=== PATIENT | male | born 1980 | race Hispanic/Latino ===

== ENCOUNTER 2017-08-27 23:33 | Emergency (ER) | payer OTHER ==
--- NOTE | 2017-08-27 23:51 | RAD ---
PORTABLE CHEST: 08/27/17 HISTORY: Chest pain. The lungs are clear. Heart and mediastinum appear unremarkable. IMPRESSION: No acute abnormality. POS: [facility]
[2017-08-27 23:52] LABS: #Basophils 0.2 thou/uL (0.0-0.2); #Eosinphils 0.3 thou/uL (0.0-0.7); #Lymphocytes 4.1 thou/uL (1.20-3.40); #Neutrophils 6.4 thou/uL (1.40-6.50); %Basophils 1.4 % (0.0-1.0); %Eosinophils 2.5 % (0.0-10.0); %Lymphocytes 34.7 % (21.0-51.0); %Monocytes 8.2 % (0.0-10.0); %Neutrophils 53.2 % (42.0-75.0); Mean Corpuscular Hemoglobin 30.3 pg (27.0-31.0); Mean Corpuscular Volume 89.2 fl (80.0-94.0); Mean Platelet Volume 9.1 fL (7.4-10.4); Platelet Count 229 thou/uL (130-400); RBC Distribution Width 12.4 % (11.5-14.5); Red Blood Cell (RBC) Count 4.97 mill/uL (4.70-6.10); White Blood Cell (WBC) Count 11.9 thou/uL (4.8-10.8)
[2017-08-28 00:13] LABS: ALT (SGPT) 33 U/L (8-55); AST (SGOT) 21 U/L (5-34); Albumin 4.6 g/dL (3.5-5.0); Alkaline Phosphatase 108 U/L (40-150); Anion Gap 14 mmol/L (10-20); BUN (Urea Nitrogen) 18 mg/dL (8.9-20.6); Bilirubin, Total 0.5 mg/dL (0.2-1.2); Calc. Creatinine Clearance 0 mL/min (70-130); Carbon Dioxide 26 mmol/L (22-29); Chloride 102 mmol/L (98-107); Estimated GFR-MDRD Greater than 90; Globulin 2.9 g/dL (2.4-3.5); Glucose 83 mg/dL (70-105); Potassium 3.7 mmol/L (3.5-5.1); Protein, Total 7.5 g/dL (6.0-8.3); Sodium 138 mmol/L (136-145)
[2017-08-28 00:19] LABS: CKMB 0.9 ng/mL (0-6.6); Troponin I Less than 0.010 ng/mL (< 0.028)
[2017-08-28] MEDS ORDERED: Ketorolac Tromethamine 30 MG/ML VIAL ONE (00:38)
== END 2017-08-28 01:18 | disposition home or self-care (01) ==
LOC: ERS 23:33
DX: R07.89 Other chest pain (principal); F17.210 Nicotine dependence, cigarettes, uncomplicated
CPT/HCPCS: 71045; 80053; 82553; 84484; 85025; 85379; 93005; 96361; 96374; 96375; J1885; J2270

== ENCOUNTER 2019-02-02 19:56 | Observation (INO) | payer OTHER, BC ==
[2019-02-02] MEDS ORDERED: Aspirin Chewable 81 MG TAB ONE (20:11)
[2019-02-02] MEDS ORDERED: Nitroglycerin 2% Ointment 1 INCH/1 GM Packet ONE (20:11)
[2019-02-02 20:22] LABS: #Basophils 0.2 thou/uL (0.0-0.2); #Eosinphils 0.2 thou/uL (0.0-0.7); #Lymphocytes 2.9 thou/uL (1.20-3.40); #Monocytes 1.1 thou/uL (0.11-0.59); #Neutrophils 6.4 thou/uL (1.40-6.50); %Basophils 1.6 % (0.0-1.0); %Eosinophils 1.7 % (0.0-10.0); %Lymphocytes 27.1 % (21.0-51.0); %Monocytes 9.8 % (0.0-10.0); %Neutrophils 59.8 % (42.0-75.0); Hemoglobin 16.2 g/dL (14.0-18.0); Mean Corpuscular HGB CONC 32.1 g/dL (32.0-36.0); Mean Corpuscular Hemoglobin 28.6 pg (27.0-31.0); Mean Platelet Volume 10.8 fL (7.4-10.4); Platelet Count 261 thou/uL (130-400); RBC Distribution Width 12.6 % (11.5-14.5); Red Blood Cell (RBC) Count 5.68 mill/uL (4.70-6.10); White Blood Cell (WBC) Count 10.7 thou/uL (4.8-10.8)
--- NOTE | 2019-02-02 20:30 | RAD ---
EXAM: Chest PA and lateral: HISTORY: Chest pain COMPARISON: 08/27/2017 FINDINGS: Heart size:Within normal limits. Lungs:Clear of acute process. No confluent pneumonia, overt edema, pleural effusion, or other acute process. IMPRESSION: No significant acute intrathoracic disease.
[2019-02-02 20:35] LABS: ALT (SGPT) 39 U/L (8-55); AST (SGOT) 25 U/L (5-34); Albumin 4.6 g/dL (3.5-5.0); Alkaline Phosphatase 114 U/L (40-110); Anion Gap 17 mmol/L (10-20); BUN (Urea Nitrogen) 14 mg/dL (8.9-20.6); Bilirubin, Total 0.7 mg/dL (0.2-1.2); CK (CPK) 225 U/L (30-200); Calc. Creatinine Clearance 0 mL/min (70-130); Calcium 9.5 mg/dL (7.8-10.44); Carbon Dioxide 27 mmol/L (22-29); Chloride 99 mmol/L (98-107); Estimated GFR-MDRD 71; Globulin 3.3 g/dL (2.4-3.5); Glucose 83 mg/dL (70-105); Lipase 10 U/L (8-78); Potassium 3.6 mmol/L (3.5-5.1); Protein, Total 7.9 g/dL (6.0-8.3); Sodium 139 mmol/L (136-145)
[2019-02-02 22:12] VITALS: BMI 41.3
[2019-02-02] MEDS ORDERED: Morphine 2 MG/ML SYRINGE SLOW IVP PRN (22:30)
[2019-02-02] MEDS ORDERED: hydrALAZINE 20 MG/ML VIAL SLOW IVP PRN (22:30)
[2019-02-02] MEDS ORDERED: Sodium Chloride 0.9% 1,000 ML IV SCH (22:35)
[2019-02-02] MEDS ORDERED: HYDROcodone/Acetaminophen 5/325 mg Tablet PO PRN (22:35)
[2019-02-02] MEDS ORDERED: Ondansetron PF 4 MG/2 ML Vial IVP PRN (22:35)
[2019-02-02] MEDS: Nitroglycerin 2% Ointment 1 INCH/1 GM Packet TOP SCH (22:48)
[2019-02-02 23:32] LABS: Troponin I 0.016 ng/mL (< 0.028)
--- NOTE | 2019-02-03 00:44 | HP ---
PRESENTING COMPLAINT: Left-sided chest pain. HISTORY OF PRESENT ILLNESS: Josh Kowalski is a 38-year-old male with past medical history of GERD, on Prevacid, who developed left-sided chest pain radiating to the left shoulder since the last one day. The pain was more of a sharp, but later became pressure-like. The patient describes the pain as about 7 to 10. The pain was not improved after he was given nitroglycerin patch and aspirin. The initial EKG at the emergency room showed T-wave inversion in lead one and AVF. The patient continues to still have persistent pain symptoms now. His initial troponin was negative with repeat 4 hours later of 0.016. The patient admits to some nausea and vomiting, but denies any palpitation or dizziness. FAMILY HISTORY: There is no family history of coronary artery disease. Both parents are alive and well. social hx - mo tobacco use , no etoh use He admits to occasional marijuana vaping. PAST MEDICAL HISTORY: Significant for GERD. HOME MEDICATIONS: Include Prevacid. SOCIAL HISTORY: The patient is residing in the community with his spouse. History of former tobacco use. Still occasionally smokes. History of marijuana vaping , but no history of alcohol abuse. REVIEW OF SYSTEMS: All systems reviewed x14 were negative except as mentioned above. ALLERGIES: NO KNOWN DRUG ALLERGIES. PHYSICAL EXAMINATION: VITAL SIGNS: Current vitals, blood pressure of 128/79, pulse 84, respiratory rate 18, O2 saturation 97% on room air, temp 98. GENERAL: Obese young male, lying in bed, in mild pain and distress. HEENT: Head is atraumatic, normocephalic. NECK: No JVD. No carotid bruit. RESPIRATORY: Good air entry bilaterally. No crepitations. CARDIOVASCULAR: S1, S2. Rate and rhythm regular. Tenderness over the left anterior chest margin noted. ABDOMEN: Full, soft. No epigastric tenderness. Bowel sounds positive in all four quadrants. MUSCULOSKELETAL: No calf tenderness. No pedal edema. NEURO: The patient is alert and oriented. Cranial nerves 2 through 12 grossly intact. LABORATORY DATA: WBC 10.7, hemoglobin 16, platelet 261. D-dimer less than 0.2. Potassium 3.6, sodium 139, CK of 225, alkaline phosphatase 114. Troponin less than 0.01 and repeat of 0.016. Albumin 4.6, lipase 10. Chest x-ray shows no acute pulmonary infiltrate or effusions. IMPRESSION: 1. Atypical chest pain - possibly musculoskeletal, but may also be due to acute coronary syndrome. We will continue serial sets of cardiac enzymes. Continue nitroglycerin p.r.n. We dosed morphine x1 for pain relief. We will obtain CTA of the chest to rule out any intrathoracic abnormality including infiltrate, given tenderness of anterior chest margin. If negative, then patient might benefit from stress test as well as Cardiology eval in a.m. 2. Deep venous thrombosis prophylaxis, subcutaneous Lovenox. 3. Gastroesophageal reflux disease. Continue Prevacid. 4. Disposition. We will admit to observation for now. ADVANCED DIRECTIVES: Patient is a full code. Total time spent on review of record and discussion with the patient and spouse, greater than 60 minutes. Job ID: [id number] MTDD
[2019-02-03] MEDS ORDERED: Promethazine HCl 25 MG in Sodium Chloride 0.9% 50 ML IVPB PRN (01:08)
[2019-02-03 03:25] VITALS: TEMP 98.4
[2019-02-03 03:38] LABS: #Basophils 0.1 thou/uL (0.0-0.2); #Eosinphils 0.1 thou/uL (0.0-0.7); #Lymphocytes 1.2 thou/uL (1.20-3.40); #Monocytes 0.9 thou/uL (0.11-0.59); %Basophils 0.6 % (0.0-1.0); %Eosinophils 0.6 % (0.0-10.0); %Lymphocytes 10.6 % (21.0-51.0); %Neutrophils 80.2 % (42.0-75.0); Hemoglobin 15.2 g/dL (14.0-18.0); Mean Corpuscular HGB CONC 34.1 g/dL (32.0-36.0); Mean Corpuscular Hemoglobin 29.7 pg (27.0-31.0); Mean Corpuscular Volume 87.2 fL (78.0-98.0); Mean Platelet Volume 9.1 fL (7.4-10.4); Platelet Count 242 thou/uL (130-400); RBC Distribution Width 12.3 % (11.5-14.5); Red Blood Cell (RBC) Count 5.12 mill/uL (4.70-6.10); White Blood Cell (WBC) Count 11.2 thou/uL (4.8-10.8)
[2019-02-03 03:59] LABS: ALT (SGPT) 33 U/L (8-55); AST (SGOT) 23 U/L (5-34); Albumin 4.3 g/dL (3.5-5.0); Alkaline Phosphatase 96 U/L (40-110); Anion Gap 17 mmol/L (10-20); BUN (Urea Nitrogen) 14 mg/dL (8.9-20.6); Bilirubin, Total 0.8 mg/dL (0.2-1.2); Calc. Creatinine Clearance 173 mL/min (70-130); Carbon Dioxide 22 mmol/L (22-29); Chloride 100 mmol/L (98-107); Estimated GFR-MDRD 79; Glucose 109 mg/dL (70-105); Potassium 4.1 mmol/L (3.5-5.1); Protein, Total 7.3 g/dL (6.0-8.3); Sodium 135 mmol/L (136-145)
[2019-02-03 04:02] LABS: Troponin I Less than 0.010 ng/mL (< 0.028)
[2019-02-03 04:03] LABS: Troponin I Less than 0.010 ng/mL (< 0.028)
[2019-02-03] MEDS: Nitroglycerin 2% Ointment 1 INCH/1 GM Packet TOP SCH (06:24)
[2019-02-03] MEDS ORDERED: Nitroglycerin 0.4 MG TAB (25 Tab Bottle) PO PRN (07:46)
[2019-02-03 08:22] VITALS: BP 116/74
--- NOTE | 2019-02-03 08:24 | CT ---
PRELIMINARY REPORT/[facility]/EMERGENCY AFTER HOURS PROCEDURE: PROCEDURE INFORMATION: Exam: CT Angiography Chest With Contrast Exam date and time: 02/03/2019 1:01 AM Age: 38 years old Clinical history: Patient HX: PT C/O left sided chest pain with radiation to back TECHNIQUE: Imaging protocol: Computed tomographic angiography of the chest with intravenous contrast. 3D rendering: MIP reconstructed images were created and reviewed. COMPARISON: No relevant prior studies available. FINDINGS: Pulmonary arteries: No pulmonary emboli. Aorta: Unremarkable. No aortic aneurysm. No aortic dissection. Lungs: Unremarkable. No consolidation. No masses. Pleural space: Unremarkable. No pneumothorax. No pleural effusion. Heart: Unremarkable. No cardiomegaly. No pericardial effusion. Mediastinum: Small-sized hiatal hernia. Lymph nodes: Unremarkable. No enlarged lymph nodes. Bones/joints: Unremarkable. No acute fracture. Soft tissues: Unremarkable. IMPRESSION: No pulmonary emboli. Thank you for allowing us to participate in the care of your patient. Dictated and Authenticated by: Henry Baltazar MD 02/03/2019 1:31 AM Central Time ([place] & [place]) FINAL REPORT CT ANGIOGRAM CHEST: HISTORY: Evaluate for pulmonary artery embolism. Chest pain radiating to back. COMPARISON: None. TECHNIQUE: CT angiogram of the chest performed in the axial plane. Three-dimensional reformatted images submitte d for interpretation. FINDINGS/IMPRESSION: This report is in agreement with the preliminary report by Mandeep. No evidence of pulmonary artery embo lism to the level of the segmental arteries. POS: [facility]
[2019-02-03] MEDS ORDERED: Famotidine 20 MG TAB PO SCH (09:00)
[2019-02-03] MEDS ORDERED: Nitroglycerin 0.4mg/Hour PATCH TD SCH (09:00)
[2019-02-03] MEDS ORDERED: Enoxaparin Sodium 40 MG/0.4 ML SYRINGE SC SCH (09:00)
[2019-02-03] MEDS ORDERED: Aspirin 325 mg Enteric Coated Tablet PO SCH ×2 (09:00)
--- NOTE | 2019-02-03 10:19 | NM ---
EXAM: Cardiac SPECT HISTORY: Chest pain PROTOCOL: Stress only, single isotope TYPE OF STRESS: Pharmacologic stress with adenosine was monitored and interpreted by MELQUIADES Lynch RADIOPHARMACEUTICAL: 32 mCi technetium 99m-sestamibi injected intravenously FINDINGS: Homogeneous tracer distribution is seen in the myocardial segments on the post stress images. Gated SPECT LVEF: 61% Wall motion exam: Normal IMPRESSION: Normal post stress myocardial perfusion scan.
[2019-02-03] MEDS ORDERED: Iopamidol-370 76% 500 ML 1 ML ONE (11:27)
--- NOTE | 2019-02-03 18:49 | DIS ---
DATE OF ADMISSION: 02/02/2019 DATE OF DISCHARGE: 02/03/2019 DISCHARGE DISPOSITION: Home. FOLLOWUP: 1. Follow up with primary care physician, Dr. Ya in 1 week. 2. An outpatient followup with Gastroenterology and Cardiology would be beneficial. DISCHARGE MEDICATIONS: 1. Phenergan as needed for nausea. 2. Protonix 40 mg twice daily for 2 weeks, then daily. 3. Lifestyle modification was emphasized. The patient was seen and examined on the day of discharge. Denies any new complaints. SIGNIFICANT LABORATORY DATA: Troponin was negative. Sodium was 135. D-dimer was negative. Hemoglobin was 15.2. CT angiogram of the chest was negative for pulmonary embolism. Cardiolite stress test was negative for reversible ischemia. Ejection fraction was 61% without any wall motion abnormality. BRIEF HOSPITAL COURSE: The patient is a 38-year-old male with GERD, presented to the emergency room with chest discomfort. The chest discomfort was pressure-like, midsternal, radiating to the left shoulder. It was initially sharp in nature. He also had nausea and vomiting prior to the onset of chest pain. He also has upper respiratory tract infection like symptoms recently. Please refer to the history and physical for further details. The patient was admitted to the hospital with a diagnosis of chest discomfort, rule out acute coronary syndrome. His serial troponins remain negative. CT angiogram was negative for pulmonary embolism or dissection. His D-dimer was negative as well. He underwent Cardiolite stress test that was negative for reversible ischemia. He was advised to follow up with Cardiology as outpatient due to some nonspecific ST-T wave changes in the inferior lead. He will also benefit from outpatient GI evaluation if his symptoms does not improve with PPIs. FINAL DIAGNOSES: 1. Chest discomfort, acute coronary syndrome ruled out. 2. No reversible ischemia on the stress test. 3. Gastroesophageal reflux disease. 4. Morbid obesity with a BMI of 41.3. 5. Chronic kidney disease stage 2. 6. History of gastroesophageal reflux disease. 7. Former smoker. PLAN: Plan of care was discussed with the patient and the spouse in detail. They stated understanding. Job ID: [id number]
== END 2019-02-03 12:29 | disposition home or self-care (01) ==
LOC: SCSER 19:56 → 2SW 21:47
PROVIDERS: ADMIT Internal Medicine; ATTEND Internal Medicine
DX: R07.89 Other chest pain (principal); I12.9 Hypertensive chronic kidney disease with stage 1 through stage 4 chronic kidney disease, or unspecified chronic kidney disease; N18.9 Chronic kidney disease, unspecified; K21.9 Gastro-esophageal reflux disease without esophagitis; E66.01 Morbid (severe) obesity due to excess calories; Z68.41 Body mass index [BMI] 40.0-44.9, adult; Z79.899 Other long term (current) drug therapy; Z87.891 Personal history of nicotine dependence
CPT/HCPCS: 36415; 71046; 71275; 78452; 80053; 82550; 83690; 84484; 85025; 85379; 93005; 93017; 96361; 96372; 96374; 96375; A9500; G0378; J0153; J1650; J2270; J2405; J2550; Q9967

== ENCOUNTER 2019-08-03 16:13 | Emergency (ER) | payer OTHER, BC ==
[~2019-08-03 16:13] MED LIST: Iopamidol-370 76% 500 ML 1 ML ONE
[2019-08-03 17:18] LABS: #Basophils 0.1 thou/uL (0.0-0.2); #Eosinphils 0.2 thou/uL (0.0-0.7); #Lymphocytes 3.2 thou/uL (1.20-3.40); #Monocytes 1.2 thou/uL (0.11-0.59); #Neutrophils 6.8 thou/uL (1.40-6.50); %Basophils 1.2 % (0.0-1.0); %Eosinophils 2.1 % (0.0-10.0); %Lymphocytes 28.1 % (21.0-51.0); %Monocytes 10.1 % (0.0-10.0); %Neutrophils 58.6 % (42.0-75.0); Hemoglobin 15.1 g/dL (14.0-18.0); Mean Corpuscular HGB CONC 33.4 g/dL (32.0-36.0); Mean Corpuscular Hemoglobin 30.2 pg (27.0-31.0); Mean Corpuscular Volume 90.5 fL (78.0-98.0); Mean Platelet Volume 9.6 fL (7.4-10.4); Platelet Count 254 thou/uL (130-400); RBC Distribution Width 12.3 % (11.5-14.5); Red Blood Cell (RBC) Count 5.01 mill/uL (4.70-6.10); White Blood Cell (WBC) Count 11.5 thou/uL (4.8-10.8)
[2019-08-03] MEDS ORDERED: Morphine 4 MG/ML VIAL ONE (17:22)
[2019-08-03] MEDS ORDERED: Ondansetron PF 4 MG/2 ML Vial ONE (17:22)
[2019-08-03 18:05] LABS: ALT (SGPT) 29 U/L (8-55); AST (SGOT) 23 U/L (5-34); Albumin 4.1 g/dL (3.5-5.0); Alkaline Phosphatase 107 U/L (40-110); Anion Gap 13 mmol/L (10-20); BUN (Urea Nitrogen) 10 mg/dL (8.9-20.6); Bilirubin, Total 0.5 mg/dL (0.2-1.2); Calc. Creatinine Clearance 0 mL/min (70-130); Calcium 8.7 mg/dL (7.8-10.44); Carbon Dioxide 25 mmol/L (22-29); Chloride 102 mmol/L (98-107); Estimated GFR-MDRD Greater than 90; Globulin 3.1 g/dL (2.4-3.5); Glucose 72 mg/dL (70-105); Lipase 14 U/L (8-78); Potassium 3.6 mmol/L (3.5-5.1); Protein, Total 7.2 g/dL (6.0-8.3); Sodium 136 mmol/L (136-145)
[2019-08-03 18:11] LABS: Bilirubin Negative (Negative); Blood, Urine Negative (Negative); Clarity Clear (Clear); Glucose, Urine (Dipstick) Normal (Negative); Leukocyte Negative Leu/uL (Negative); Nitrite Negative (Negative); Protein, Urine (Dipstick) 10 mg/dL (Neg-Trace)
--- NOTE | 2019-08-03 18:52 | CT ---
EXAM: CT ABDOMEN AND PELVIS HISTORY: Abdominal pain. Previous umbilical hernia repair COMPARISON: None. Procedure: Multiple contiguous axial images were obtained and a CT of the abdomen and pelvis with IV contrast. C oronal reformats were performed. FINDINGS: Lower Chest: within normal limits. Vessels: Normal caliber aorta Heart: Normal heart size Abdomen: Portal vein:Patent Gallbladder: No calcified gallstones. Normal caliber wall. Liver: Diffuse hypoattenuation due to hepatic steatosis. Small blush of enhancement in segment 5 of t he liver may represent flash filling hemangiomas. Largest lesion measures 1.1 cm. These areas of enhancement are suggested on the CT angiogram the chest performed 02/03/2019. Evaluation is limited d ue to technique Pancreas: within normal limits. Spleen: within normal limits. Adrenals: within normal limits. Kidneys: Symmetric enhancement. No obstructive uropathy. Subcentimeter hypodensities are too small to characterize. Peritoneum: No ascites or free air, no fluid collection. Bowel: Limited evaluation due to the lack of oral contrast administration. No evidence of bowel obstr uction. Ileocecal junction is unremarkable. Normal caliber appendix. Scattered fecal material in a nondistended, nondilated colon. Occasional diverticulum. No diverticulitis. Mesentery and Retroperitoneum: No enlarged mesenteric or retroperitoneal lymph nodes. Abdominal Wall: within normal limits. Pelvis: Reproductive Organs: Reproductive organs are unremarkable. Pelvis: No mass, lymphadenopathy, free air or free fluid. Bladder: within normal limits. Bones: within normal limits. IMPRESSION: 1. No evidence of acute intraabdominal\pelvic abnormality. 2. Indeterminate hypodensities in the right and left renal cortex. Enhancing foci in the liver. Dasha r interrogation with nonemergent abdomen MRI.
== END 2019-08-03 20:33 | disposition home or self-care (01) ==
LOC: ERS 16:13
DX: P38.9 Omphalitis without hemorrhage (principal); K21.9 Gastro-esophageal reflux disease without esophagitis; R10.33 Periumbilical pain
CPT/HCPCS: 74177; 80053; 81003; 83690; 85025; 96374; 96375; J2270; J2405; Q9967

== ENCOUNTER 2019-08-25 07:39 | Outpatient (CLI) | payer BC ==
--- NOTE | 2019-08-25 10:00 | MRI ---
MRI ABDOMEN WITH AND WITHOUT CONTRAST: HISTORY: Renal mass. Liver mass. COMPARISON: CT 08/03/2019. FINDINGS: Multiplanar, multisequence MRI of the abdomen was performed prior to and after the intravenous admini stration of contrast. No pericardial effusion. No pleural effusion. There are subcentimeter cysts of the right and left r enal cortex measuring 5 mm on the right interpolar region and 8 mm on the left. These lack any inter nal enhancement on the post contrast sequences. There is diffuse hepatic steatosis with focal fatty sparing near the gallbladder fossa corresponding to the prior CT findings. There is moderate hepatic steatosis with hepatic fat fraction 29.8% and he patic fat percentage 29%. The aortic contour is nonaneurysmal. Pancreas is unremarkable. The adrenal glands are normal. No d ilated loops of bowel in the upper abdomen. No abnormal enhancing hepatic mass. The portal vein is patent. IMPRESSION: 1. Corresponding to the CT findings are benign renal cysts and benign focal fatty sparing of the gal lbladder fossa. No abnormal enhancing masses. 2. Diffuse hepatic steatosis with sparing of the gallbladder fossa as described. 3. No acute inflammatory process in the abdomen or pelvis. POS: [facility]
[2019-08-25] MEDS ORDERED: Magnevist 469MG/ML 20 ML VIAL ONE (14:24)
== END 2019-08-25 07:40 | disposition home or self-care (01) ==
LOC: BICMRI 07:39
PROVIDERS: ATTEND Family Medicine
DX: N28.9 Disorder of kidney and ureter, unspecified (principal); R10.33 Periumbilical pain; R16.0 Hepatomegaly, not elsewhere classified; K76.0 Fatty (change of) liver, not elsewhere classified; K82.8 Other specified diseases of gallbladder; N28.1 Cyst of kidney, acquired
CPT/HCPCS: 74183; A9579

== ENCOUNTER 2020-03-31 10:11 | Outpatient (CLI) | payer BC | END 2020-03-31 10:12 | disposition home or self-care (01) | LOC: DTY/OP 10:11 | PROVIDERS: ATTEND Surgery | DX: E66.01 Morbid (severe) obesity due to excess calories (principal) | CPT/HCPCS: 97802 ==

== ENCOUNTER 2020-05-04 17:45 | Inpatient (IN) | payer BC ==
[2020-05-08 10:50] VITALS: BMI 46.5
[2020-05-09] MEDS ORDERED: Heparin 5,000 UNITS/ML VIAL ONE (08:06)
[2020-05-09] MEDS ORDERED: Sodium Chloride 0.9% (PF) 10 ML VIAL FS PRN (08:30)
[2020-05-09] MEDS ORDERED: Midazolam HCl 2 mg/2 ml Vial IVP SCH (08:30)
[2020-05-09] MEDS ORDERED: Pantoprazole 40 MG VIAL IVP SCH (08:30)
[2020-05-09] MEDS ORDERED: Midazolam HCl 2 mg/2 ml Vial ONE (08:36)
[2020-05-09] MEDS ORDERED: XYLOCAINE 2%-EPI 1:100,000 20 ML VIAL ONE (09:16)
[2020-05-09] MEDS ORDERED: Bupivacaine 0.25% HCL 30 ML VIAL ONE (09:16)
[2020-05-09] MEDS ORDERED: Fentanyl 250 MCG/5 ML VIAL ONE (09:32)
[2020-05-09] MEDS ORDERED: PROPOFOL 200 MG/20 ML VIAL ONE (10:23)
[2020-05-09] MEDS ORDERED: ePHEDrine 50 MG/ML VIAL ONE (10:23)
[2020-05-09] MEDS ORDERED: Lidocaine 1% PF 5 ML VIAL ONE (10:23)
[2020-05-09] MEDS ORDERED: Glycopyrrolate 0.2 MG/ML 5 ML SYRINGE ONE (10:23)
[2020-05-09] MEDS ORDERED: Rocuronium Bromide 10 MG/ML (10ML VIAL) ONE (10:23)
[2020-05-09] MEDS ORDERED: Ketorolac Tromethamine 30 MG/ML VIAL ONE (10:23)
[2020-05-09] MEDS ORDERED: Dexamethasone 20 MG/5 ML VIAL ONE (10:23)
[2020-05-09] MEDS ORDERED: Ondansetron HCl/PF 4 MG/2 ML Vial IVP PRN (11:20)
[2020-05-09] MEDS ORDERED: HYDROmorphone 2 MG/ML VIAL SLOW IVP PRN (11:20)
[2020-05-09] MEDS ORDERED: Meperidine HCl/PF 25 MG/ML VIAL SLOW IVP PRN (11:20)
[2020-05-09] MEDS ORDERED: Promethazine HCl 25 MG/ML VIAL IM PRN ×3 (11:20→17:47)
[2020-05-09] MEDS ORDERED: Promethazine HCl 25 MG/ML VIAL SLOW IVP PRN (11:20)
[2020-05-09] MEDS ORDERED: Fentanyl 100 MCG/2 ML VIAL ONE ×2 (11:24→11:46)
--- NOTE | 2020-05-09 11:41 | OP ---
DATE OF PROCEDURE: 05/09/2020 PREOPERATIVE DIAGNOSIS: Morbid obesity with a body mass index of 45. POSTOPERATIVE DIAGNOSES: Morbid obesity with a body mass index of 45 plus paraesophageal hiatal hernia. PROCEDURES PERFORMED: 1. Laparoscopic sleeve gastrectomy with Ethicon staple line reinforcements and 38-[place] bougie. 2. Paraesophageal hiatal hernia repair without fundoplication. ANESTHESIA: General. ESTIMATED BLOOD LOSS: Minimal. COMPLICATIONS: None. SPECIMEN: Stomach. FINDINGS: Hiatal hernia. Normal postoperative EGD. DESCRIPTION OF PROCEDURE: The patient was taken to the operating room and placed supine on the operating room table. After anesthetic was obtained, arms and legs were double strapped to bariatric table. The abdomen was shaved, prepped, and draped in a sterile fashion. Left subcostal 5-mm Optiview trocar placed in usual fashion without injury. High-flow pneumoperitoneum was obtained. Left and right abdominal 12-mm ports as well as a right subcostal 5-mm port were placed under direct visualization. Wood retractor was brought in through a 5-mm incision at the xiphoid, used to raise the liver off the GE junction. Short gastrics were taken down to a distance of 6 cm proximal to the pylorus all the way to the left dulce maria of diaphragm. Left dulce maria, posterior fundus, angle of His were completely dissected. The hiatal hernia was found. The GE junction was brought back down into the abdominal cavity. Circumferential dissection of the esophagus was performed. Meticulous dissection was used to dissect out the right and left crura. A 38 bougie was brought and tip left in the antrum of the stomach. Multiple loads of an echelon stapling device with Ethicon staple line reinforcements were used to form the sleeve. The first was a green load. The rest are gold loads all the way to the angle of His. Stomach was removed from the left abdominal incision. This fascial defect was closed using GraNee needle, Vicryl tie. The posterior crura were closed using 1 interrupted Ethibond suture and the Ti-KNOT system. Bougie was removed. EGD scope was brought in to the pylorus and into the duodenum. There was no leakage through the staple line. No bleeding through the staple line. No stricture at the incisura. No involvement of the GE junction with the staple line. EGD scope was used to decompress the stomach, it was pulled and removed. All port sites were infiltrated using local anesthetic. All ports were removed under camera visualization. Pneumoperitoneum was let down. 4-0 Monocryl and Dermabond were used to close all skin incisions. The patient was sent to Recovery in stable condition. All instrument counts, needle counts, and lap counts were correct. Job ID: [id number]
[2020-05-09] MEDS ORDERED: HYDROmorphone 0.5 MG/0.5 ML SYRINGE ONE ×2 (12:13→13:07)
[2020-05-09] MEDS ORDERED: diphenhydrAMINE 25 MG CAP PO PRN (12:45)
[2020-05-09] MEDS ORDERED: fentaNYL Citrate/PF 2,000 MCG in Sodium Chloride 0.9% 60 ML IV PRN (12:45)
[2020-05-09] MEDS ORDERED: Naloxone HCl 0.4 mg/ml Vial IV PRN (12:45)
[2020-05-09] MEDS ORDERED: diphenhydrAMINE 50 MG/ML VIAL IM/IV PRN (12:45)
[2020-05-09] MEDS ORDERED: Ondansetron PF 4 MG/2 ML Vial IVP PRN (12:45)
[2020-05-09] MEDS ORDERED: Zolpidem Tartrate 5 MG TAB PO PRN (12:45)
[2020-05-09] MEDS ORDERED: hydrALAZINE 20 MG/ML VIAL SLOW IVP PRN (17:47)
[2020-05-09] MEDS ORDERED: Dextrose 5% in Water 1,000 ML IV PRN (17:47)
[2020-05-09] MEDS ORDERED: diphenhydrAMINE 50 MG/ML VIAL IVP PRN (17:47)
[2020-05-09] MEDS ORDERED: Dextrose 50% Abboject 50 ML SYRINGE SLOW IVP PRN (17:47)
[2020-05-09] MEDS ORDERED: Hydrocodone-Acetamin 15 ML UDCUP PO PRN (17:47)
[2020-05-09] MEDS: D5 1/2 NS w/20 mEq KCL 1,000 ML IV SCH (18:45)
[2020-05-09] MEDS: Ondansetron PF 4 MG/2 ML Vial IVP PRN (20:57)
[2020-05-09] MEDS ORDERED: Enoxaparin Sodium 40 MG/0.4 ML SYRINGE SC SCH (21:00)
[2020-05-10] MEDS: D5 1/2 NS w/20 mEq KCL 1,000 ML IV SCH ×2 (05:14→09:47)
[2020-05-10 06:45] LABS: #Basophils 0.1 thou/uL (0.0-0.2); #Lymphocytes 1.7 thou/uL (1.20-3.40); #Monocytes 1.2 thou/uL (0.11-0.59); #Neutrophils 10.8 thou/uL (1.40-6.50); %Basophils 0.4 % (0.0-1.0); %Eosinophils 0.1 % (0.0-10.0); %Neutrophils 78.5 % (42.0-75.0); Hemoglobin 12.7 g/dL (14.0-18.0); Mean Corpuscular HGB CONC 33.8 g/dL (32.0-36.0); Mean Corpuscular Hemoglobin 30.3 pg (27.0-31.0); Mean Corpuscular Volume 89.5 fL (78.0-98.0); Mean Platelet Volume 9.3 fL (7.4-10.4); Platelet Count 227 thou/uL (130-400); RBC Distribution Width 12.1 % (11.5-14.5); Red Blood Cell (RBC) Count 4.18 mill/uL (4.70-6.10); White Blood Cell (WBC) Count 13.7 thou/uL (4.8-10.8)
[2020-05-10 07:06] LABS: Anion Gap 12 mmol/L (10-20); BUN (Urea Nitrogen) 9 mg/dL (8.9-20.6); Calc. Creatinine Clearance 232 mL/min (70-130); Calcium 8.3 mg/dL (7.8-10.44); Carbon Dioxide 25 mmol/L (22-29); Chloride 103 mmol/L (98-107); Glucose 114 mg/dL (70-105); Potassium 3.8 mmol/L (3.5-5.1); Sodium 136 mmol/L (136-145)
--- NOTE | 2020-05-10 07:51 | PDOC.GSPN ---
Surgery Progress Note: Subj - Subjective Patient reports: tolerating liquids well, no bowel movement, still having pain Narrative: Mr. Moreno is 40y old m with a past medical history of obesity one day post op for a gastric sleeve. When I saw him this morning, he was in the room with his in 3301. He was in moderate pain and stated that it was in his central epigastric area. He said his worst pain was in his shoulder radiating to his stomach area. He was wincing and tachycardic though he was having no dyspnea. He is tolerating clear liquids and is walking regularly with his . Surgery Progress Note: Obj - Vital signs Vital signs: Vital Signs - Most Recent Temp Pulse Resp BP Pulse Ox 98.3 F 90 18 117/76 95 05/10/20 03:39 05/10/20 03:39 05/10/20 03:39 05/10/20 03:39 05/10/20 03:39 - Physical Exam General: well developed, moderate pain Cardiovascular: irregular rate, no murmur Respiratory: clear to auscultation, normal expansion, normal respiratory effort, breath sounds present Abdomen: soft, non tender, appropriately tender Musculoskeletal: normal gait Psychiatric: memory intact Wound: healing well Surgery Progress Note: Results - Labs Result Diagrams: 05/10/20 06:29 05/10/20 06:29 Lab results: Laboratory Results - last 12 hr 05/10/20 05/10/20 06:29 06:29 WBC 13.7 H RBC 4.18 L Hgb 12.7 L Hct 37.4 L MCV 89.5 MCH 30.3 MCHC 33.8 RDW 12.1 Plt Count 227 MPV 9.3 Neutrophils % 78.5 H Lymphocytes % 12.0 L Monocytes % 9.0 Eosinophils % 0.1 Basophils % 0.4 Neutrophils # 10.8 H Lymphocytes # 1.7 Monocytes # 1.2 H Eosinophils # 0.0 Basophils # 0.1 Sodium 136 Potassium 3.8 Chloride 103 Carbon Dioxide 25 Anion Gap 12 BUN 9 Creatinine 0.79 Estimated GFR (MDRD) Greater than 90 Glucose 114 H Calcium 8.3 Surgery Progress Note: A/P - Problem (1) S/P laparoscopic sleeve gastrectomy Current Visit: Yes Code(s): Z98.84 - BARIATRIC SURGERY STATUS Status: Acute Assessment and Plan: Continue encouraging ambulating. This will help with pain. Continue to monitor fluid intake and tolerance. (2) Chest pain Current Visit: No Code(s): R07.9 - CHEST PAIN, UNSPECIFIED Status: Acute Assessment and Plan: Though he believes his chest pain is related to trapped gas, an EKG may be appropriate if pain persists.
[2020-05-10] MEDS ORDERED: Pantoprazole 40 MG VIAL IVP SCH (09:00)
[2020-05-10] MEDS ORDERED: Hydrocodone-Acetamin 15 ML UDCUP PO PRN (10:44)
[2020-05-10] MEDS: Ondansetron PF 4 MG/2 ML Vial IVP PRN ×2 (10:58→15:07)
[2020-05-10 11:18] VITALS: TEMP 97.9
[2020-05-10 15:00] VITALS: BP 128/86
--- NOTE | 2020-05-11 06:03 | DIS ---
DATE OF ADMISSION: 05/09/2020 DATE OF DISCHARGE: 05/10/2020 ADMIT DIAGNOSIS: Morbid obesity. DISCHARGE DIAGNOSIS: Morbid obesity plus hiatal hernia. PROCEDURE: Laparoscopic sleeve and hiatal hernia repair by Dr. Lundberg without complication. CONDITION ON DISCHARGE: Improved. HOSPITAL COURSE: On postop day #1, the patient tolerated the liquids without difficulty. He complains of pain in his epigastric area when he takes a big breath. He was complaining of left-sided sharp pain in his shoulder, and I assume this was secondary to hiatal hernia repair and some of the CO2 gas in his mediastinum. However, 12-lead EKG reveals no ST changes. His troponin level was normal, and he denies this being a squeezing type chest pain. He has never had heart history before. His vital signs are stable. He is to be discharged as well. He will stay on a liquid diet. Prescriptions for Lortab Elixir, pantoprazole, and Zofran sent to his pharmacy already. Job ID: [id number]
--- NOTE | 2020-05-11 20:59 | EKG ---
Test Reason : Blood Pressure : / mmHG Vent. Rate : 098 BPM Atrial Rate : 098 BPM P-R Int : 132 ms QRS Dur : 088 ms QT Int : 342 ms P-R-T Axes : 024 -07 -03 degrees QTc Int : 436 ms Normal sinus rhythm Moderate voltage criteria for LVH, may be normal variant Borderline ECG When compared with ECG of 05-MAY-2020 12:02, No significant change was found Confirmed by Altagracia KOROMA ([id number]) on 05/11/2020 8:58:53 PM Referred By: GUME Confirmed By:Altagracia KOROMA
== END 2020-05-10 16:20 | disposition home or self-care (01) | DRG 621 ==
LOC: SURG A 05-09 06:30
PROVIDERS: ADMIT Surgery; ATTEND Surgery
PROC: 0DB64Z3 Excision of Stomach, Percutaneous Endoscopic Approach, Vertical (ICD-10-PCS; principal; 2020-05-09)
PROC: 0BQT4ZZ Repair Diaphragm, Percutaneous Endoscopic Approach (ICD-10-PCS; 2020-05-09)
DX: E66.01 Morbid (severe) obesity due to excess calories (principal); Z20.822 Contact with and (suspected) exposure to COVID-19; K44.9 Diaphragmatic hernia without obstruction or gangrene; F17.210 Nicotine dependence, cigarettes, uncomplicated; Z68.42 Body mass index [BMI] 45.0-49.9, adult; R07.89 Other chest pain
CPT/HCPCS: 36415; 80048; 84484; 85025; 88307; 93005; 93010; 94760; C9113; J0690; J1100; J1170; J1644; J1650; J1885; J2250; J2405; J2704; J3010; J3480; J3490; S0020

== ENCOUNTER 2020-05-15 14:11 | Day surgery (SDC) | payer BC ==
[2020-05-15 14:38] VITALS: BP 127/73; TEMP 98.2
[2020-05-15] MEDS ORDERED: Ondansetron PF 4 MG/2 ML Vial IVP SCH (14:45)
[2020-05-15] MEDS ORDERED: Sodium Chloride 0.9% 1,000 ML IV SCH (14:45)
[2020-05-15] MEDS ORDERED: Sodium Chloride 0.9% 20 ML ONE (15:02)
[2020-05-15] MEDS ORDERED: Thiamine HCl 100 MG, Multivitamins, Adult 10 ML in Sodium Chloride 0.9% 1,000 ML IM SCH (16:00)
== END 2020-05-15 17:23 | disposition home or self-care (01) ==
LOC: ONC/OP 14:11
PROVIDERS: ATTEND Surgery
DX: E86.0 Dehydration (principal)
CPT/HCPCS: 96361; 96365; 96366; J3411; J7050

== ENCOUNTER → 2020-06-11 | Day surgery (SDC) | payer BC ==
[2020-06-11] MEDS: Sodium Chloride 0.9% 1,000 ML IV SCH ×2 (13:10→14:24)
[2020-06-11 13:14] VITALS: BP 131/77; TEMP 99.3
== END ==
LOC: ONC/OP 12:27
PROVIDERS: ATTEND Surgery
DX: E86.0 Dehydration (principal)
CPT/HCPCS: 96360; 96361

== ENCOUNTER 2020-06-12 11:27 | Inpatient (IN) | payer BC ==
[2020-06-12 13:17] LABS: #Basophils 0.1 thou/uL (0.0-0.2); #Monocytes 1.7 thou/uL (0.11-0.59); #Neutrophils 9.6 thou/uL (1.40-6.50); %Basophils 0.6 % (0.0-1.0); %Eosinophils 0.4 % (0.0-10.0); %Monocytes 12.9 % (0.0-10.0); %Neutrophils 71.1 % (42.0-75.0); Mean Corpuscular HGB CONC 32.6 g/dL (32.0-36.0); Mean Corpuscular Hemoglobin 29.2 pg (27.0-31.0); Mean Corpuscular Volume 89.6 fL (78.0-98.0); Mean Platelet Volume 9.2 fL (7.4-10.4); Platelet Count 277 thou/uL (130-400); RBC Distribution Width 12.5 % (11.5-14.5); Red Blood Cell (RBC) Count 4.45 mill/uL (4.70-6.10); White Blood Cell (WBC) Count 13.5 thou/uL (4.8-10.8)
[2020-06-12 13:40] LABS: ALT (SGPT) 21 U/L (8-55); AST (SGOT) 12 U/L (5-34); Albumin 3.8 g/dL (3.5-5.0); Alkaline Phosphatase 99 U/L (40-110); Anion Gap 14 mmol/L (10-20); BUN (Urea Nitrogen) 8 mg/dL (8.9-20.6); Calc. Creatinine Clearance 0 mL/min (70-130); Carbon Dioxide 26 mmol/L (22-29); Chloride 100 mmol/L (98-107); Globulin 3.9 g/dL (2.4-3.5); Glucose 97 mg/dL (70-105); Lipase 21 U/L (8-78); Potassium 3.9 mmol/L (3.5-5.1); Protein, Total 7.7 g/dL (6.0-8.3); Sodium 136 mmol/L (136-145)
[2020-06-12] MEDS ORDERED: Heparin 1,000 UNITS/ML VIAL ONE (15:37)
[2020-06-12] MEDS ORDERED: Ondansetron PF 4 MG/2 ML Vial ONE (21:11)
[2020-06-12] MEDS ORDERED: Metoclopramide HCl 10 MG/2 ML VIAL ONE (21:45)
[2020-06-13] MEDS ORDERED: Sodium Chloride 0.9% 1,000 ML IV SCH (06:45)
[2020-06-13] MEDS ORDERED: Ondansetron PF 4 MG/2 ML Vial IVP PRN (06:54)
[2020-06-13] MEDS ORDERED: hydrALAZINE 20 MG/ML VIAL SLOW IVP PRN (06:54)
[2020-06-13] MEDS ORDERED: Dextrose 5% in Water 1,000 ML IV PRN (06:54)
[2020-06-13] MEDS ORDERED: Morphine 4 MG/ML VIAL SLOW IVP PRN (06:54)
[2020-06-13] MEDS ORDERED: Morphine 2 MG/ML VIAL SLOW IVP PRN (06:54)
[2020-06-13] MEDS ORDERED: Dextrose 50% Abboject 50 ML SYRINGE SLOW IVP PRN (06:54)
[2020-06-13] MEDS ORDERED: Promethazine HCl 25 MG/ML VIAL IM PRN ×3 (06:54→11:54)
[2020-06-13] MEDS: Piperacillin/Tazobactam 3.375 GM in Sodium Chloride 0.9% 100 ML IVPB SCH ×3 (08:19→20:10)
[2020-06-13] MEDS: D5 1/2 NS w/20 mEq KCL 1,000 ML IV SCH ×3 (08:19→21:55)
[2020-06-13] MEDS: Pantoprazole 40 MG VIAL IVP SCH ×2 (08:19→20:14)
[2020-06-13 08:37] VITALS: BMI 39.1
[2020-06-13] MEDS ORDERED: Fentanyl 100 MCG/2 ML VIAL ONE ×3 (09:16→12:03)
[2020-06-13] MEDS ORDERED: Midazolam HCl 2 mg/2 ml Vial ONE (09:17)
[2020-06-13] MEDS ORDERED: SUGAMMADEX SODIUM 200 MG/2 ML VIAL ONE (09:27)
[2020-06-13] MEDS ORDERED: Bupivacaine 0.25% HCL 30 ML VIAL ONE (09:30)
[2020-06-13] MEDS ORDERED: Lidocaine 1% w/Epinephrine 1:100K 20 ML VIAL ONE (09:30)
[2020-06-13] MEDS ORDERED: Ondansetron PF 4 MG/2 ML Vial ONE (09:50)
[2020-06-13] MEDS ORDERED: Rocuronium Bromide 10 MG/ML (10ML VIAL) ONE (09:50)
[2020-06-13] MEDS ORDERED: PROPOFOL 200 MG/20 ML VIAL ONE (09:50)
[2020-06-13] MEDS ORDERED: PHENYLEPHRINE-NS 100 MCG/ML 10 ML SYRINGE ONE (09:50)
[2020-06-13] MEDS ORDERED: Ketorolac Tromethamine 30 MG/ML VIAL ONE (09:50)
[2020-06-13] MEDS ORDERED: Dexamethasone 20 MG/5 ML VIAL ONE (09:50)
[2020-06-13] MEDS ORDERED: diphenhydrAMINE 50 MG/ML VIAL ONE (09:50)
[2020-06-13] MEDS ORDERED: Esmolol 100 MG/10 ML VIAL ONE (09:50)
[2020-06-13] MEDS ORDERED: Lidocaine 1% PF 5 ML VIAL ONE (09:50)
[2020-06-13] MEDS ORDERED: diphenhydrAMINE 25 MG CAP PO PRN (11:54)
[2020-06-13] MEDS ORDERED: Promethazine HCl 25 MG/ML VIAL SLOW IVP PRN (11:54)
[2020-06-13] MEDS ORDERED: diphenhydrAMINE 50 MG/ML VIAL IM PRN (11:54)
[2020-06-13] MEDS ORDERED: diphenhydrAMINE 50 MG/ML VIAL IVP PRN (11:54)
[2020-06-13] MEDS ORDERED: HYDROmorphone 2 MG/ML VIAL SLOW IVP PRN (11:54)
[2020-06-13] MEDS ORDERED: Naloxone HCl 0.4 mg/ml Vial IV PRN (11:54)
[2020-06-13] MEDS ORDERED: Zolpidem Tartrate 5 MG TAB PO PRN (11:54)
[2020-06-13] MEDS ORDERED: Ondansetron HCl/PF 4 MG/2 ML Vial IVP PRN (11:54)
[2020-06-13] MEDS ORDERED: Communication Order-Pharmacy FS SCH (12:00)
[2020-06-13] MEDS: Fluconazole In NaCl,Iso-Osm 200 MG in Premix Bag 1 BAG IVPB SCH (13:41)
[2020-06-13] MEDS: Enoxaparin Sodium 40 MG/0.4 ML SYRINGE SC SCH (20:13)
[2020-06-14] MEDS: Piperacillin/Tazobactam 3.375 GM in Sodium Chloride 0.9% 100 ML IVPB SCH ×4 (01:29→19:58)
[2020-06-14] MEDS: D5 1/2 NS w/20 mEq KCL 1,000 ML IV SCH ×2 (04:57→14:52)
[2020-06-14 05:41] LABS: #Lymphocytes 0.9 thou/uL (1.20-3.40); #Monocytes 0.9 thou/uL (0.11-0.59); #Neutrophils 10.9 thou/uL (1.40-6.50); %Basophils 0.1 % (0.0-1.0); %Eosinophils 0.1 % (0.0-10.0); %Lymphocytes 6.8 % (21.0-51.0); %Monocytes 7.4 % (0.0-10.0); %Neutrophils 85.5 % (42.0-75.0); Hemoglobin 11.3 g/dL (14.0-18.0); Mean Corpuscular HGB CONC 32.3 g/dL (32.0-36.0); Mean Corpuscular Hemoglobin 28.9 pg (27.0-31.0); Mean Corpuscular Volume 89.3 fL (78.0-98.0); Mean Platelet Volume 9.5 fL (7.4-10.4); Platelet Count 281 thou/uL (130-400); RBC Distribution Width 12.2 % (11.5-14.5); Red Blood Cell (RBC) Count 3.92 mill/uL (4.70-6.10); White Blood Cell (WBC) Count 12.7 thou/uL (4.8-10.8)
[2020-06-14 05:45] LABS: Anion Gap 12 mmol/L (10-20); BUN (Urea Nitrogen) 5 mg/dL (8.9-20.6); Calc. Creatinine Clearance 245 mL/min (70-130); Calcium 8.3 mg/dL (7.8-10.44); Carbon Dioxide 22 mmol/L (22-29); Chloride 104 mmol/L (98-107); Glucose 167 mg/dL (70-105); Potassium 3.9 mmol/L (3.5-5.1); Sodium 134 mmol/L (136-145)
[2020-06-14] MEDS: Pantoprazole 40 MG VIAL IVP SCH ×2 (08:41→19:59)
[2020-06-14] MEDS: Fluconazole In NaCl,Iso-Osm 200 MG in Premix Bag 1 BAG IVPB SCH (14:02)
[2020-06-14] MEDS: fentaNYL Citrate/PF 2,000 MCG in Sodium Chloride 0.9% 60 ML IV PRN (14:51)
[2020-06-14] MEDS: Enoxaparin Sodium 40 MG/0.4 ML SYRINGE SC SCH (19:59)
[2020-06-15] MEDS: D5 1/2 NS w/20 mEq KCL 1,000 ML IV SCH ×4 (00:41→19:59)
[2020-06-15] MEDS: Piperacillin/Tazobactam 3.375 GM in Sodium Chloride 0.9% 100 ML IVPB SCH ×4 (02:40→19:46)
[2020-06-15] MEDS: Pantoprazole 40 MG VIAL IVP SCH ×2 (09:15→19:46)
[2020-06-15] MEDS: Fluconazole In NaCl,Iso-Osm 200 MG in Premix Bag 1 BAG IVPB SCH (12:54)
[2020-06-15] MEDS ORDERED: GASTROGRAFIN 30 ML BOT ONE (14:08)
[2020-06-16] MEDS: Piperacillin/Tazobactam 3.375 GM in Sodium Chloride 0.9% 100 ML IVPB SCH ×4 (02:33→19:42)
[2020-06-16] MEDS: fentaNYL Citrate/PF 2,000 MCG in Sodium Chloride 0.9% 60 ML IV PRN (05:57)
[2020-06-16] MEDS: D5 1/2 NS w/20 mEq KCL 1,000 ML IV SCH ×3 (05:57→19:28)
[2020-06-16] MEDS ORDERED: Piperacillin/Tazobactam 3.375 GM VIAL ONE (08:10)
[2020-06-16] MEDS: Pantoprazole 40 MG VIAL IVP SCH ×2 (08:15→19:42)
[2020-06-16] MEDS: Ondansetron PF 4 MG/2 ML Vial IVP PRN ×2 (08:16→21:47)
[2020-06-16] MEDS: Fluconazole In NaCl,Iso-Osm 200 MG in Premix Bag 1 BAG IVPB SCH (12:53)
[2020-06-16] MEDS ORDERED: Electrolyte Replacement Protocol 1 EACH FS PRN (13:11)
[2020-06-16 15:50] VITALS: TEMP 98.2
[2020-06-16] MEDS ORDERED: Morphine 2 MG/ML VIAL SLOW IVP PRN (17:26)
[2020-06-16 20:43] VITALS: BP 115/78
[2020-06-16] MEDS ORDERED: Enoxaparin Sodium 40 MG/0.4 ML SYRINGE SC SCH (21:00)
[2020-06-16] MEDS ORDERED: [UNRECOGNIZED DRUG - OTHER] IV SCH (22:00)
[2020-06-16] MEDS ORDERED: Fat Emulsion 250 ML IVPB SCH (22:00)
[2020-06-16] MEDS ORDERED: POTASSIUM ACETATE IV SCH (22:00)
[2020-06-16] MEDS ORDERED: SODIUM ACETATE IV SCH (22:00)
[2020-06-16] MEDS ORDERED: Multivitamins, Adult 10 ML, ZINC/COPPER/MANGANESE/SELENIUM 1 ML in D15W-AA 5% with Lyte... IV SCH (22:00)
== END 2020-06-16 21:50 | disposition short-term general hospital (02) | DRG 856 ==
LOC: ERS 11:27 → INTOOBSV 22:51 → SURG A 22:51 → OBSVTOIN 06-14 14:18
PROVIDERS: ADMIT Surgery; ATTEND Surgery
PROC: 0W9G4ZZ Drainage of Peritoneal Cavity, Percutaneous Endoscopic Approach (ICD-10-PCS; principal; 2020-06-13)
PROC: 0DJ08ZZ Inspection of Upper Intestinal Tract, Via Natural or Artificial Opening Endoscopic (ICD-10-PCS; 2020-06-13)
PROC: 02HV33Z Insertion of Infusion Device into Superior Vena Cava, Percutaneous Approach (ICD-10-PCS; 2020-06-16)
DX: T81.43XA Infection following a procedure, organ and space surgical site, initial encounter (principal); K65.1 Peritoneal abscess; K21.9 Gastro-esophageal reflux disease without esophagitis; E66.01 Morbid (severe) obesity due to excess calories; F17.200 Nicotine dependence, unspecified, uncomplicated; Z68.39 Body mass index [BMI] 39.0-39.9, adult; Y83.8 Other surgical procedures as the cause of abnormal reaction of the patient, or of later complication, without mention of misadventure at the time of the procedure
CPT/HCPCS: 36415; 36569; 71045; 74177; 74240; 80048; 80053; 83690; 84484; 85025; 87070; 87077; 87205; 87635; 93005; 96360; 96361; 96365; 96366; 96367; 96372; 96375; 96376; C1751; C9113; G0378; J1100; J1200; J1450; J1644; J1650; J1885; J2250; J2270; J2405; J2543; J2550; J2704; J2765; J3010; J3411; J3480; J3490; Q9963; Q9967; S0020; U0003; U0005

== ENCOUNTER 2020-06-23 19:28 | Inpatient (IN) | payer BC ==
[2020-06-23] MEDS ORDERED: Promethazine HCl 25 MG/ML VIAL IM PRN (20:25)
[2020-06-23] MEDS ORDERED: hydrALAZINE 20 MG/ML VIAL SLOW IVP PRN (20:25)
[2020-06-23] MEDS ORDERED: Dextrose 5% in Water 1,000 ML IV PRN (20:25)
[2020-06-23] MEDS ORDERED: Dextrose 50% Abboject 50 ML SYRINGE SLOW IVP PRN (20:25)
[2020-06-23] MEDS ORDERED: Morphine 2 MG/ML VIAL SLOW IVP PRN (20:25)
[2020-06-23] MEDS ORDERED: Morphine 4 MG/ML VIAL SLOW IVP PRN ×2 (20:25)
[2020-06-23] MEDS ORDERED: HumaLOG 300 UNITS/3 ML VIAL SC PRN (20:25)
[2020-06-23] MEDS ORDERED: Hydrocodone-Acetamin 15 ML UDCUP PO PRN (20:25)
[2020-06-23 21:00] VITALS: BMI 38.4
[2020-06-23] MEDS: Micafungin 100 MG in Sodium Chloride 0.9% 100 ML IVPB SCH (21:07)
[2020-06-23] MEDS: Enoxaparin Sodium 40 MG/0.4 ML SYRINGE SC SCH (21:27)
[2020-06-23] MEDS: Pantoprazole 40 MG VIAL IVP SCH (21:27)
[2020-06-23] MEDS ORDERED: VANCOMYCIN 2 GRAM/400 ML BAG 2 GM in Premix Bag 1 BAG IVPB SCH (22:00)
[2020-06-23] MEDS: MEROPENEM 1 GM/50 ML 1 GM in Premix Bag 1 BAG IVPB SCH (22:25)
[2020-06-24] MEDS: D5 1/2 NS w/20 mEq KCL 1,000 ML IV SCH ×2 (02:13→16:35)
[2020-06-24 05:18] LABS: #Basophils 0.1 thou/uL (0.0-0.2); #Eosinphils 0.2 thou/uL (0.0-0.7); #Lymphocytes 3.6 thou/uL (1.20-3.40); #Monocytes 1.5 thou/uL (0.11-0.59); #Neutrophils 9.8 thou/uL (1.40-6.50); %Basophils 0.8 % (0.0-1.0); %Lymphocytes 23.7 % (21.0-51.0); %Neutrophils 64.5 % (42.0-75.0); Hemoglobin 12.7 g/dL (14.0-18.0); Mean Corpuscular HGB CONC 31.1 g/dL (32.0-36.0); Mean Corpuscular Hemoglobin 27.6 pg (27.0-31.0); Mean Corpuscular Volume 88.9 fL (78.0-98.0); Mean Platelet Volume 8.8 fL (7.4-10.4); Platelet Count 409 thou/uL (130-400); RBC Distribution Width 13.2 % (11.5-14.5); White Blood Cell (WBC) Count 15.2 thou/uL (4.8-10.8)
[2020-06-24 05:21] LABS: INR-International Normal Ratio 1.1; PTT 46.4 sec (22.9-36.1)
[2020-06-24] MEDS: MEROPENEM 1 GM/50 ML 1 GM in Premix Bag 1 BAG IVPB SCH ×3 (05:30→22:24)
[2020-06-24 05:37] LABS: Anion Gap 13 mmol/L (10-20); BUN (Urea Nitrogen) 15 mg/dL (8.9-20.6); Calc. Creatinine Clearance 205 mL/min (70-130); Calcium 8.6 mg/dL (7.8-10.44); Carbon Dioxide 24 mmol/L (22-29); Chloride 105 mmol/L (98-107); Glucose 88 mg/dL (70-105); Potassium 3.8 mmol/L (3.5-5.1); Sodium 138 mmol/L (136-145)
[2020-06-24 05:44] LABS: ALT (SGPT) 79 U/L (8-55); AST (SGOT) 20 U/L (5-34); Albumin 3.3 g/dL (3.5-5.0); Alkaline Phosphatase 84 U/L (40-110); Anion Gap 15 mmol/L (10-20); BUN (Urea Nitrogen) 15 mg/dL (8.9-20.6); Bilirubin, Total 0.4 mg/dL (0.2-1.2); Calc. Creatinine Clearance 202 mL/min (70-130); Calcium 8.7 mg/dL (7.8-10.44); Carbon Dioxide 21 mmol/L (22-29); Cardiac Risk 7.4 (Less than 4.5); Chloride 104 mmol/L (98-107); Cholesterol 134 mg/dl (< 200 Desired); Globulin 3.7 g/dL (2.4-3.5); Glucose 90 mg/dL (70-105); HDL Cholesterol 18 mg/dL (>60 Neg Risk); LDL Cholesterol, Calculated 72 mg/dL; Magnesium 2.2 mg/dL (1.6-2.6); Phosphorus 3.9 mg/dL (2.3-4.7); Potassium 3.6 mmol/L (3.5-5.1); Sodium 136 mmol/L (136-145); Triglycerides 219 mg/dL (Less than 150)
[2020-06-24] MEDS: VANCOMYCIN 1.25 GM/250 ML BAG 1.25 GM in Premix Bag 1 BAG IVPB SCH ×3 (06:11→22:24)
[2020-06-24] MEDS: Pantoprazole 40 MG VIAL IVP SCH ×2 (07:46→20:36)
[2020-06-24 09:05] LABS: SARS-CoV-2 PCR by NAA Not Detected (NotDetected)
[2020-06-24] MEDS: Morphine 2 MG/ML VIAL SLOW IVP PRN ×2 (10:33→22:23)
[2020-06-24] MEDS: Ondansetron PF 4 MG/2 ML Vial IVP PRN ×2 (10:33→16:57)
[2020-06-24] MEDS ORDERED: Electrolyte Replacement Protocol 1 EACH FS PRN (10:45)
[2020-06-24] MEDS ORDERED: SODIUM CHLORIDE IV SCH (14:00)
[2020-06-24] MEDS ORDERED: CALCIUM GLUCONATE IV SCH (14:00)
[2020-06-24] MEDS ORDERED: [UNRECOGNIZED DRUG - OTHER] IV SCH (14:00)
[2020-06-24] MEDS: Multivitamins, Adult 10 ML, TRACE ELEMENT CONCENTRATE 1 ML in D15W-AA 5% with Lytes 2,0... IV SCH (14:29)
[2020-06-24] MEDS: FAT EMULSION IVPB SCH (14:29)
[2020-06-24] MEDS: ADMIXTURE FEE IVPB SCH (14:29)
[2020-06-24] MEDS: Enoxaparin Sodium 40 MG/0.4 ML SYRINGE SC SCH (20:35)
[2020-06-24] MEDS: Micafungin 100 MG in Sodium Chloride 0.9% 100 ML IVPB SCH (20:35)
[2020-06-25] MEDS: D5 1/2 NS w/20 mEq KCL 1,000 ML IV SCH ×2 (05:11→15:09)
[2020-06-25] MEDS: Morphine 2 MG/ML VIAL SLOW IVP PRN (05:46)
[2020-06-25] MEDS: MEROPENEM 1 GM/50 ML 1 GM in Premix Bag 1 BAG IVPB SCH ×3 (05:47→21:40)
[2020-06-25] MEDS: VANCOMYCIN 1.25 GM/250 ML BAG 1.25 GM in Premix Bag 1 BAG IVPB SCH ×3 (05:48→21:40)
[2020-06-25 06:11] LABS: Phosphorus 4.4 mg/dL (2.3-4.7)
[2020-06-25 06:50] LABS: ALT (SGPT) 62 U/L (8-55); AST (SGOT) 18 U/L (5-34); Albumin 3.4 g/dL (3.5-5.0); Alkaline Phosphatase 88 U/L (40-110); Anion Gap 14 mmol/L (10-20); BUN (Urea Nitrogen) 12 mg/dL (8.9-20.6); Bilirubin, Total 0.5 mg/dL (0.2-1.2); Calc. Creatinine Clearance 216 mL/min (70-130); Calcium 8.9 mg/dL (7.8-10.44); Carbon Dioxide 24 mmol/L (22-29); Chloride 102 mmol/L (98-107); Globulin 3.9 g/dL (2.4-3.5); Glucose 94 mg/dL (70-105); Magnesium 2.4 mg/dL (1.6-2.6); Potassium 3.9 mmol/L (3.5-5.1); Protein, Total 7.3 g/dL (6.0-8.3); Sodium 136 mmol/L (136-145)
[2020-06-25] MEDS: Pantoprazole 40 MG VIAL IVP SCH ×2 (08:53→21:19)
[2020-06-25] MEDS: ADMIXTURE FEE IVPB SCH (14:16)
[2020-06-25] MEDS: FAT EMULSION IVPB SCH (14:16)
[2020-06-25] MEDS: Multivitamins, Adult 10 ML, TRACE ELEMENT CONCENTRATE 1 ML in D15W-AA 5% with Lytes 2,0... IV SCH (14:16)
[2020-06-25] MEDS: HYDROcodone/Acetaminophen 7.5/325 mg Tablet PO PRN (15:53)
[2020-06-25] MEDS: Enoxaparin Sodium 40 MG/0.4 ML SYRINGE SC SCH (21:18)
[2020-06-25] MEDS: Micafungin 100 MG in Sodium Chloride 0.9% 100 ML IVPB SCH (21:40)
[2020-06-26] MEDS: VANCOMYCIN 1.25 GM/250 ML BAG 1.25 GM in Premix Bag 1 BAG IVPB SCH (01:48)
[2020-06-26] MEDS: D5 1/2 NS w/20 mEq KCL 1,000 ML IV SCH ×3 (01:57→22:13)
[2020-06-26] MEDS ORDERED: VANCOMYCIN 1.25 GM/250 ML BAG 1.25 GM in Premix Bag 1 BAG IVPB SCH (02:00)
[2020-06-26] MEDS: HYDROcodone/Acetaminophen 7.5/325 mg Tablet PO PRN ×3 (04:33→21:40)
[2020-06-26] MEDS: MEROPENEM 1 GM/50 ML 1 GM in Premix Bag 1 BAG IVPB SCH ×3 (05:40→21:40)
[2020-06-26 06:33] LABS: Phosphorus 3.8 mg/dL (2.3-4.7)
[2020-06-26 08:50] LABS: Vancomycin, Trough 15.2 ug/mL
[2020-06-26] MEDS: Pantoprazole 40 MG VIAL IVP SCH ×2 (09:07→20:20)
[2020-06-26] MEDS: Vancomycin HCl 1.25 GM in Sodium Chloride 0.9% 250 ML 250 ML IVPB SCH ×2 (10:36→18:22)
[2020-06-26] MEDS: Ondansetron PF 4 MG/2 ML Vial IVP PRN (14:06)
[2020-06-26] MEDS: ADMIXTURE FEE IVPB SCH (14:30)
[2020-06-26] MEDS: FAT EMULSION IVPB SCH (14:30)
[2020-06-26] MEDS: Multivitamins, Adult 10 ML, TRACE ELEMENT CONCENTRATE 1 ML in D15W-AA 5% with Lytes 2,0... IV SCH (14:31)
[2020-06-26] MEDS: Micafungin 100 MG in Sodium Chloride 0.9% 100 ML IVPB SCH (20:19)
[2020-06-26] MEDS: Enoxaparin Sodium 40 MG/0.4 ML SYRINGE SC SCH (20:19)
[2020-06-27] MEDS: Vancomycin HCl 1.25 GM in Sodium Chloride 0.9% 250 ML 250 ML IVPB SCH ×3 (01:06→17:45)
[2020-06-27] MEDS: MEROPENEM 1 GM/50 ML 1 GM in Premix Bag 1 BAG IVPB SCH ×3 (05:31→21:28)
[2020-06-27] MEDS: D5 1/2 NS w/20 mEq KCL 1,000 ML IV SCH ×2 (06:47→12:33)
[2020-06-27 07:21] LABS: #Basophils 0.1 thou/uL (0.0-0.2); #Eosinphils 0.3 thou/uL (0.0-0.7); #Lymphocytes 2.4 thou/uL (1.20-3.40); #Monocytes 1.4 thou/uL (0.11-0.59); #Neutrophils 5.9 thou/uL (1.40-6.50); %Basophils 1.2 % (0.0-1.0); %Monocytes 13.9 % (0.0-10.0); %Neutrophils 57.9 % (42.0-75.0); Hemoglobin 12.7 g/dL (14.0-18.0); Mean Corpuscular HGB CONC 32.3 g/dL (32.0-36.0); Mean Corpuscular Hemoglobin 28.8 pg (27.0-31.0); Mean Corpuscular Volume 89.1 fL (78.0-98.0); Mean Platelet Volume 9.4 fL (7.4-10.4); Platelet Count 342 thou/uL (130-400); RBC Distribution Width 13.1 % (11.5-14.5); Red Blood Cell (RBC) Count 4.42 mill/uL (4.70-6.10); White Blood Cell (WBC) Count 10.1 thou/uL (4.8-10.8)
[2020-06-27 07:38] LABS: Anion Gap 13 mmol/L (10-20); BUN (Urea Nitrogen) 11 mg/dL (8.9-20.6); Calc. Creatinine Clearance 197 mL/min (70-130); Calcium 8.7 mg/dL (7.8-10.44); Carbon Dioxide 26 mmol/L (22-29); Chloride 102 mmol/L (98-107); Glucose 87 mg/dL (70-105); Magnesium 2.4 mg/dL (1.6-2.6); Phosphorus 3.7 mg/dL (2.3-4.7); Sodium 137 mmol/L (136-145)
[2020-06-27] MEDS: Pantoprazole 40 MG VIAL IVP SCH ×2 (08:18→19:24)
[2020-06-27 08:59] LABS: ALT (SGPT) 47 U/L (8-55); AST (SGOT) 20 U/L (5-34); Albumin 3.3 g/dL (3.5-5.0); Alkaline Phosphatase 89 U/L (40-110); Anion Gap 13 mmol/L (10-20); BUN (Urea Nitrogen) 11 mg/dL (8.9-20.6); Bilirubin, Total 0.4 mg/dL (0.2-1.2); Calc. Creatinine Clearance 220 mL/min (70-130); Calcium 8.5 mg/dL (7.8-10.44); Carbon Dioxide 24 mmol/L (22-29); Chloride 104 mmol/L (98-107); Globulin 3.5 g/dL (2.4-3.5); Glucose 129 mg/dL (70-105); Magnesium 2.3 mg/dL (1.6-2.6); Potassium 3.7 mmol/L (3.5-5.1); Protein, Total 6.8 g/dL (6.0-8.3); Sodium 137 mmol/L (136-145)
[2020-06-27] MEDS: HYDROcodone/Acetaminophen 7.5/325 mg Tablet PO PRN ×2 (10:13→16:42)
[2020-06-27] MEDS: Ondansetron PF 4 MG/2 ML Vial IVP PRN (14:08)
[2020-06-27] MEDS: ADMIXTURE FEE IVPB SCH (14:14)
[2020-06-27] MEDS: FAT EMULSION IVPB SCH (14:14)
[2020-06-27] MEDS: Multivitamins, Adult 10 ML, TRACE ELEMENT CONCENTRATE 1 ML in D15W-AA 5% with Lytes 2,0... IV SCH (14:14)
[2020-06-27] MEDS: Enoxaparin Sodium 40 MG/0.4 ML SYRINGE SC SCH (19:24)
[2020-06-28] MEDS: HYDROcodone/Acetaminophen 7.5/325 mg Tablet PO PRN ×2 (05:41→15:19)
[2020-06-28] MEDS: MEROPENEM 1 GM/50 ML 1 GM in Premix Bag 1 BAG IVPB SCH ×3 (05:52→22:29)
[2020-06-28] MEDS ORDERED: Activase 2 MG VIAL CATH SCH (06:15)
[2020-06-28] MEDS ORDERED: Sterile Water 10 ML VIAL IVP SCH (06:15)
[2020-06-28] MEDS: D5 1/2 NS w/20 mEq KCL 1,000 ML IV SCH ×2 (06:43→08:42)
[2020-06-28] MEDS: Pantoprazole 40 MG VIAL IVP SCH ×2 (08:40→20:17)
[2020-06-28 09:25] LABS: ALT (SGPT) 42 U/L (8-55); AST (SGOT) 21 U/L (5-34); Albumin 3.4 g/dL (3.5-5.0); Alkaline Phosphatase 96 U/L (40-110); Anion Gap 12 mmol/L (10-20); BUN (Urea Nitrogen) 11 mg/dL (8.9-20.6); Bilirubin, Total 0.4 mg/dL (0.2-1.2); Calc. Creatinine Clearance 226 mL/min (70-130); Calcium 8.9 mg/dL (7.8-10.44); Carbon Dioxide 27 mmol/L (22-29); Chloride 104 mmol/L (98-107); Globulin 3.6 g/dL (2.4-3.5); Glucose 98 mg/dL (70-105); Magnesium 2.4 mg/dL (1.6-2.6); Phosphorus 3.9 mg/dL (2.3-4.7); Potassium 4.1 mmol/L (3.5-5.1); Sodium 139 mmol/L (136-145)
[2020-06-28 09:33] LABS: Vancomycin, Trough 8.4 ug/mL
[2020-06-28] MEDS: Ondansetron PF 4 MG/2 ML Vial IVP PRN (13:39)
[2020-06-28] MEDS ORDERED: Acetaminophen 325 MG TAB PO PRN (14:12)
[2020-06-28] MEDS: FAT EMULSION IVPB SCH (14:53)
[2020-06-28] MEDS: ADMIXTURE FEE IVPB SCH (14:53)
[2020-06-28] MEDS: Multivitamins, Adult 10 ML, TRACE ELEMENT CONCENTRATE 1 ML in D15W-AA 5% with Lytes 2,0... IV SCH (14:54)
[2020-06-28] MEDS: Enoxaparin Sodium 40 MG/0.4 ML SYRINGE SC SCH (20:17)
[2020-06-29] MEDS: D5 1/2 NS w/20 mEq KCL 1,000 ML IV SCH ×3 (00:06→22:51)
[2020-06-29] MEDS: HYDROcodone/Acetaminophen 7.5/325 mg Tablet PO PRN ×3 (04:33→21:31)
[2020-06-29] MEDS: MEROPENEM 1 GM/50 ML 1 GM in Premix Bag 1 BAG IVPB SCH ×3 (05:38→21:31)
[2020-06-29 06:27] LABS: Phosphorus 4.2 mg/dL (2.3-4.7)
[2020-06-29 09:17] LABS: ALT (SGPT) 41 U/L (8-55); AST (SGOT) 24 U/L (5-34); Albumin 3.4 g/dL (3.5-5.0); Alkaline Phosphatase 97 U/L (40-110); Anion Gap 12 mmol/L (10-20); BUN (Urea Nitrogen) 12 mg/dL (8.9-20.6); Bilirubin, Total 0.3 mg/dL (0.2-1.2); Calc. Creatinine Clearance 216 mL/min (70-130); Calcium 8.9 mg/dL (7.8-10.44); Carbon Dioxide 28 mmol/L (22-29); Chloride 103 mmol/L (98-107); Globulin 3.5 g/dL (2.4-3.5); Glucose 106 mg/dL (70-105); Magnesium 2.5 mg/dL (1.6-2.6); Potassium 3.9 mmol/L (3.5-5.1); Protein, Total 6.9 g/dL (6.0-8.3); Sodium 139 mmol/L (136-145)
[2020-06-29] MEDS: Pantoprazole 40 MG VIAL IVP SCH ×2 (09:31→19:59)
[2020-06-29] MEDS: Ondansetron PF 4 MG/2 ML Vial IVP PRN (19:57)
[2020-06-29] MEDS: Enoxaparin Sodium 40 MG/0.4 ML SYRINGE SC SCH (20:01)
[2020-06-30 06:10] LABS: Phosphorus 3.9 mg/dL (2.3-4.7)
[2020-06-30] MEDS: D5 1/2 NS w/20 mEq KCL 1,000 ML IV SCH (06:23)
[2020-06-30] MEDS: MEROPENEM 1 GM/50 ML 1 GM in Premix Bag 1 BAG IVPB SCH (06:32)
[2020-06-30 07:48] VITALS: TEMP 97.9
[2020-06-30] MEDS: Pantoprazole 40 MG VIAL IVP SCH (09:10)
[2020-06-30] MEDS: HYDROcodone/Acetaminophen 7.5/325 mg Tablet PO PRN (09:22)
[2020-06-30 10:03] LABS: ALT (SGPT) 50 U/L (8-55); AST (SGOT) 33 U/L (5-34); Albumin 3.8 g/dL (3.5-5.0); Alkaline Phosphatase 113 U/L (40-110); Anion Gap 15 mmol/L (10-20); BUN (Urea Nitrogen) 13 mg/dL (8.9-20.6); Bilirubin, Total 0.6 mg/dL (0.2-1.2); Calc. Creatinine Clearance 199 mL/min (70-130); Calcium 9.4 mg/dL (7.8-10.44); Carbon Dioxide 26 mmol/L (22-29); Chloride 101 mmol/L (98-107); Globulin 3.9 g/dL (2.4-3.5); Glucose 95 mg/dL (70-105); Magnesium 2.4 mg/dL (1.6-2.6); Protein, Total 7.7 g/dL (6.0-8.3); Sodium 138 mmol/L (136-145)
[2020-06-30 11:12] VITALS: BP 111/77
== END 2020-06-30 12:27 | disposition home or self-care (01) | DRG 395 ==
LOC: SURG B 19:28
PROVIDERS: ADMIT Surgery; ATTEND Surgery
DX: K95.89 Other complications of other bariatric procedure (principal); Y84.8 Other medical procedures as the cause of abnormal reaction of the patient, or of later complication, without mention of misadventure at the time of the procedure; E66.01 Morbid (severe) obesity due to excess calories; Z68.38 Body mass index [BMI] 38.0-38.9, adult; Z20.822 Contact with and (suspected) exposure to COVID-19
CPT/HCPCS: 36415; 36416; 80048; 80053; 80061; 80202; 83735; 84100; 84134; 85025; 85610; 85730; 87635; C9113; J1650; J2185; J2248; J2270; J2405; J2997; J3370; J3411; J3480; J3490; J7050; U0003; U0005

== ENCOUNTER 2020-07-07 09:01 | Inpatient (IN) | payer BC ==
[2020-07-07] MEDS ORDERED: Ondansetron PF 4 MG/2 ML Vial ONE ×2 (09:16→15:21)
[2020-07-07] MEDS ORDERED: Morphine 4 MG/ML VIAL ONE ×3 (09:16→14:16)
[2020-07-07 09:27] LABS: #Basophils 0.1 thou/uL (0.0-0.2); #Eosinphils 0.1 thou/uL (0.0-0.7); #Lymphocytes 1.9 thou/uL (1.20-3.40); #Monocytes 1.4 thou/uL (0.11-0.59); #Neutrophils 9.4 thou/uL (1.40-6.50); %Basophils 0.8 % (0.0-1.0); %Eosinophils 0.7 % (0.0-10.0); %Lymphocytes 14.6 % (21.0-51.0); %Monocytes 10.6 % (0.0-10.0); %Neutrophils 73.2 % (42.0-75.0); Hemoglobin 13.3 g/dL (14.0-18.0); Mean Corpuscular HGB CONC 31.6 g/dL (32.0-36.0); Mean Corpuscular Hemoglobin 27.7 pg (27.0-31.0); Mean Corpuscular Volume 87.6 fL (78.0-98.0); Mean Platelet Volume 9.9 fL (7.4-10.4); Platelet Count 246 thou/uL (130-400); RBC Distribution Width 13.1 % (11.5-14.5); Red Blood Cell (RBC) Count 4.81 mill/uL (4.70-6.10); White Blood Cell (WBC) Count 12.9 thou/uL (4.8-10.8)
[2020-07-07 09:34] LABS: INR-International Normal Ratio 1.1; PTT 41.8 sec (22.9-36.1); Prothrombin Time 14.4 sec (12.0-14.7)
[2020-07-07 09:49] LABS: ALT (SGPT) 26 U/L (8-55); AST (SGOT) 14 U/L (5-34); Albumin 3.7 g/dL (3.5-5.0); Alkaline Phosphatase 123 U/L (40-110); Anion Gap 17 mmol/L (10-20); BUN (Urea Nitrogen) 9 mg/dL (8.9-20.6); Calc. Creatinine Clearance 0 mL/min (70-130); Carbon Dioxide 28 mmol/L (22-29); Chloride 96 mmol/L (98-107); Globulin 3.7 g/dL (2.4-3.5); Glucose 106 mg/dL (70-105); Potassium 4.1 mmol/L (3.5-5.1); Protein, Total 7.4 g/dL (6.0-8.3); Sodium 137 mmol/L (136-145)
[2020-07-07] MEDS ORDERED: Piperacillin/Tazobactam 4.5 GM VIAL ONE ×2 (10:15→10:21)
[2020-07-07] MEDS ORDERED: Iopamidol 370 76% 50 ML VIAL FS ONE (12:27)
[2020-07-07] MEDS ORDERED: Iopamidol 370 76% 100 ML VIAL ONE (12:27)
[2020-07-07] MEDS ORDERED: Bupivacaine 0.25% HCL 30 ML VIAL ONE (14:13)
[2020-07-07] MEDS ORDERED: Lidocaine 1% w/Epinephrine 1:100K 20 ML VIAL ONE (14:13)
[2020-07-07] MEDS ORDERED: Midazolam HCl 2 mg/2 ml Vial ONE (14:20)
[2020-07-07] MEDS ORDERED: Fentanyl 100 MCG/2 ML VIAL ONE ×4 (14:20→19:04)
[2020-07-07] MEDS ORDERED: MEROPENEM 1 GM/50 ML 1 GM in Premix Bag 1 BAG IVPB SCH (15:00)
[2020-07-07 15:09] LABS: SARS-CoV-2 NAA Rapid Test Not Detected (NotDetected)
[2020-07-07] MEDS ORDERED: Rocuronium Bromide 10 MG/ML (10ML VIAL) ONE (15:21)
[2020-07-07] MEDS ORDERED: Lidocaine 1% PF 5 ML VIAL ONE (15:21)
[2020-07-07] MEDS ORDERED: Dexamethasone 20 MG/5 ML VIAL ONE (15:21)
[2020-07-07] MEDS ORDERED: Ketorolac Tromethamine 30 MG/ML VIAL ONE (15:21)
[2020-07-07] MEDS ORDERED: PROPOFOL 200 MG/20 ML VIAL ONE (15:21)
[2020-07-07] MEDS ORDERED: Glycopyrrolate 0.2 MG/ML 5 ML SYRINGE ONE (15:21)
[2020-07-07] MEDS ORDERED: Promethazine HCl 25 MG/ML VIAL IM PRN ×3 (17:51→19:16)
[2020-07-07] MEDS ORDERED: Naloxone HCl 0.4 mg/ml Vial IV PRN (17:51)
[2020-07-07] MEDS ORDERED: Ondansetron HCl/PF 4 MG/2 ML Vial IVP PRN (17:51)
[2020-07-07] MEDS ORDERED: diphenhydrAMINE 50 MG/ML VIAL IM PRN (17:51)
[2020-07-07] MEDS ORDERED: Zolpidem Tartrate 5 MG TAB PO PRN (17:51)
[2020-07-07] MEDS ORDERED: Ondansetron PF 4 MG/2 ML Vial IVP PRN (17:51)
[2020-07-07] MEDS ORDERED: diphenhydrAMINE 25 MG CAP PO PRN (17:51)
[2020-07-07] MEDS ORDERED: Promethazine HCl 25 MG/ML VIAL SLOW IVP PRN (17:51)
[2020-07-07] MEDS ORDERED: PACU-Morphine 4MG/ML VIAL SLOW IVP PRN (17:51)
[2020-07-07] MEDS ORDERED: diphenhydrAMINE 50 MG/ML VIAL IVP PRN (17:51)
[2020-07-07] MEDS ORDERED: HYDROmorphone 2 MG/ML VIAL SLOW IVP PRN (17:51)
[2020-07-07] MEDS ORDERED: Promethazine HCl 25 MG/ML VIAL ONE (17:55)
[2020-07-07] MEDS ORDERED: Communication Order-Pharmacy FS SCH (18:00)
[2020-07-07] MEDS ORDERED: Dextrose 50% Abboject 50 ML SYRINGE SLOW IVP PRN (19:16)
[2020-07-07] MEDS ORDERED: HumaLOG 300 UNITS/3 ML VIAL SC PRN (19:16)
[2020-07-07] MEDS ORDERED: Dextrose 5% in Water 1,000 ML IV PRN (19:16)
[2020-07-07] MEDS ORDERED: hydrALAZINE 20 MG/ML VIAL SLOW IVP PRN (19:16)
[2020-07-07] MEDS: D5 1/2 NS w/20 mEq KCL 1,000 ML IV SCH (20:07)
[2020-07-07] MEDS: Micafungin 100 MG in Sodium Chloride 0.9% 100 ML IVPB SCH (21:15)
[2020-07-07] MEDS: MEROPENEM 1 GM/50 ML 1 GM in Premix Bag 1 BAG IVPB SCH (21:18)
[2020-07-07 21:29] VITALS: BMI 38.0
[2020-07-08] MEDS: MEROPENEM 1 GM/50 ML 1 GM in Premix Bag 1 BAG IVPB SCH ×3 (05:21→20:35)
[2020-07-08] MEDS: HYDROmorphone 10 mg/100 ml CADD IVPB PRN ×2 (05:21→20:33)
[2020-07-08 06:24] LABS: #Lymphocytes 0.9 thou/uL (1.20-3.40); #Monocytes 1.6 thou/uL (0.11-0.59); %Eosinophils 0.1 % (0.0-10.0); %Lymphocytes 5.6 % (21.0-51.0); %Monocytes 10.2 % (0.0-10.0); %Neutrophils 84.1 % (42.0-75.0); Hemoglobin 10.6 g/dL (14.0-18.0); Mean Corpuscular HGB CONC 31.4 g/dL (32.0-36.0); Mean Corpuscular Hemoglobin 27.6 pg (27.0-31.0); Mean Platelet Volume 9.6 fL (7.4-10.4); Platelet Count 225 thou/uL (130-400); RBC Distribution Width 12.9 % (11.5-14.5); Red Blood Cell (RBC) Count 3.85 mill/uL (4.70-6.10); White Blood Cell (WBC) Count 15.5 thou/uL (4.8-10.8)
[2020-07-08 06:42] LABS: Anion Gap 11 mmol/L (10-20); BUN (Urea Nitrogen) 7 mg/dL (8.9-20.6); Calc. Creatinine Clearance 234 mL/min (70-130); Calcium 8.4 mg/dL (7.8-10.44); Carbon Dioxide 27 mmol/L (22-29); Chloride 102 mmol/L (98-107); Glucose 163 mg/dL (70-105); Potassium 4.7 mmol/L (3.5-5.1); Sodium 135 mmol/L (136-145)
[2020-07-08] MEDS: Pantoprazole 40 MG VIAL IVP SCH (09:05)
[2020-07-08] MEDS: D5 1/2 NS w/20 mEq KCL 1,000 ML IV SCH ×2 (13:41→20:33)
[2020-07-08] MEDS: Fat Emulsion 250 ML IVPB SCH (14:45)
[2020-07-08] MEDS: Multivitamins, Adult 10 ML, TRACE ELEMENT CONCENTRATE 1 ML in D15W-AA 5% with Lytes 2,0... IV SCH (14:45)
[2020-07-08] MEDS: Micafungin 100 MG in Sodium Chloride 0.9% 100 ML IVPB SCH (20:35)
[2020-07-09] MEDS: D5 1/2 NS w/20 mEq KCL 1,000 ML IV SCH ×2 (03:28→08:15)
[2020-07-09] MEDS: MEROPENEM 1 GM/50 ML 1 GM in Premix Bag 1 BAG IVPB SCH ×3 (05:29→21:21)
[2020-07-09 05:45] LABS: #Basophils 0.1 thou/uL (0.0-0.2); #Lymphocytes 2.4 thou/uL (1.20-3.40); #Monocytes 2.2 thou/uL (0.11-0.59); %Basophils 0.6 % (0.0-1.0); %Eosinophils 0.1 % (0.0-10.0); %Monocytes 14.3 % (0.0-10.0); %Neutrophils 70.1 % (42.0-75.0); Hemoglobin 9.7 g/dL (14.0-18.0); Mean Corpuscular HGB CONC 31.3 g/dL (32.0-36.0); Mean Corpuscular Hemoglobin 27.6 pg (27.0-31.0); Mean Corpuscular Volume 88.4 fL (78.0-98.0); Mean Platelet Volume 9.4 fL (7.4-10.4); Platelet Count 255 thou/uL (130-400); Red Blood Cell (RBC) Count 3.49 mill/uL (4.70-6.10); White Blood Cell (WBC) Count 15.7 thou/uL (4.8-10.8)
[2020-07-09 06:08] LABS: Anion Gap 12 mmol/L (10-20); BUN (Urea Nitrogen) 7 mg/dL (8.9-20.6); Calc. Creatinine Clearance 274 mL/min (70-130); Carbon Dioxide 28 mmol/L (22-29); Chloride 101 mmol/L (98-107); Glucose 126 mg/dL (70-105); Phosphorus 2.3 mg/dL (2.3-4.7); Potassium 3.7 mmol/L (3.5-5.1); Sodium 137 mmol/L (136-145)
[2020-07-09] MEDS: Pantoprazole 40 MG VIAL IVP SCH (08:15)
[2020-07-09] MEDS ORDERED: Sodium Chloride 0.9% 1,000 ML IV SCH (10:00)
[2020-07-09] MEDS: Ondansetron PF 4 MG/2 ML Vial IVP PRN (14:41)
[2020-07-09] MEDS: Multivitamins, Adult 10 ML, TRACE ELEMENT CONCENTRATE 1 ML in D15W-AA 5% with Lytes 2,0... IV SCH (14:41)
[2020-07-09] MEDS: Fat Emulsion 250 ML IVPB SCH (14:41)
[2020-07-09] MEDS ORDERED: Acetaminophen 650 MG Suppository PR PRN (19:45)
[2020-07-09] MEDS: Enoxaparin Sodium 40 MG/0.4 ML SYRINGE SC SCH (21:20)
[2020-07-09] MEDS: Micafungin 100 MG in Sodium Chloride 0.9% 100 ML IVPB SCH (21:21)
[2020-07-10] MEDS: MEROPENEM 1 GM/50 ML 1 GM in Premix Bag 1 BAG IVPB SCH ×3 (05:52→23:42)
[2020-07-10 06:24] LABS: Anion Gap 14 mmol/L (10-20); BUN (Urea Nitrogen) 7 mg/dL (8.9-20.6); Calc. Creatinine Clearance 274 mL/min (70-130); Calcium 8.3 mg/dL (7.8-10.44); Carbon Dioxide 26 mmol/L (22-29); Chloride 98 mmol/L (98-107); Glucose 121 mg/dL (70-105); Potassium 3.3 mmol/L (3.5-5.1); Sodium 135 mmol/L (136-145)
[2020-07-10 07:05] LABS: Mean Corpuscular HGB CONC 32.1 g/dL (32.0-36.0); Mean Corpuscular Hemoglobin 27.9 pg (27.0-31.0); Mean Platelet Volume 9.2 fL (7.4-10.4); Platelet Count 282 thou/uL (130-400); RBC Distribution Width 13.4 % (11.5-14.5); Red Blood Cell (RBC) Count 3.56 mill/uL (4.70-6.10); White Blood Cell (WBC) Count 16.5 thou/uL (4.8-10.8)
[2020-07-10] MEDS ORDERED: Potassium Chloride 40 MEQ in Premix Bag 1 BAG IVPB SCH (07:15)
[2020-07-10 08:41] LABS: Band 3 % (5-11); Lymphocytes 18 % (21-51); MDiff Complete? YES; Monocytes 10 % (0-10); Neutrophil 66 % (42-75); Platelet Morphology Comment Appears Adequate; RBC Morphology Normal; Reactive Lymphocytes 2 % (0-10)
[2020-07-10] MEDS: Pantoprazole 40 MG VIAL IVP SCH (08:41)
[2020-07-10] MEDS: HYDROmorphone 10 mg/100 ml CADD IVPB PRN ×2 (11:51→22:28)
[2020-07-10] MEDS: Ondansetron PF 4 MG/2 ML Vial IVP PRN (12:27)
[2020-07-10] MEDS ORDERED: Sodium Chloride 0.9% 1,000 ML IV SCH (13:15)
[2020-07-10] MEDS: Multivitamins, Adult 10 ML, TRACE ELEMENT CONCENTRATE 1 ML in D15W-AA 5% with Lytes 2,0... IV SCH (14:14)
[2020-07-10] MEDS: Fat Emulsion 250 ML IVPB SCH (14:15)
[2020-07-10] MEDS: Micafungin 100 MG in Sodium Chloride 0.9% 100 ML IVPB SCH (21:18)
[2020-07-10] MEDS: Enoxaparin Sodium 40 MG/0.4 ML SYRINGE SC SCH (21:19)
[2020-07-11] MEDS: MEROPENEM 1 GM/50 ML 1 GM in Premix Bag 1 BAG IVPB SCH ×3 (06:06→23:14)
[2020-07-11] MEDS: Pantoprazole 40 MG VIAL IVP SCH (08:30)
[2020-07-11] MEDS: Fat Emulsion 250 ML IVPB SCH (14:22)
[2020-07-11] MEDS: Multivitamins, Adult 10 ML, TRACE ELEMENT CONCENTRATE 1 ML in D15W-AA 5% with Lytes 2,0... IV SCH (14:22)
[2020-07-11] MEDS: HYDROmorphone 10 mg/100 ml CADD IVPB PRN (20:57)
[2020-07-11] MEDS: Enoxaparin Sodium 40 MG/0.4 ML SYRINGE SC SCH (20:57)
[2020-07-11] MEDS: Micafungin 100 MG in Sodium Chloride 0.9% 100 ML IVPB SCH (20:58)
[2020-07-11] MEDS: Ondansetron PF 4 MG/2 ML Vial IVP PRN (23:21)
[2020-07-12] MEDS: MEROPENEM 1 GM/50 ML 1 GM in Premix Bag 1 BAG IVPB SCH ×3 (05:47→23:25)
[2020-07-12 08:23] LABS: #Eosinphils 0.7 thou/uL (0.0-0.7); #Lymphocytes 2.4 thou/uL (1.20-3.40); #Monocytes 1.6 thou/uL (0.11-0.59); #Neutrophils 6.4 thou/uL (1.40-6.50); %Basophils 0.4 % (0.0-1.0); %Eosinophils 6.6 % (0.0-10.0); %Lymphocytes 21.2 % (21.0-51.0); %Monocytes 14.5 % (0.0-10.0); %Neutrophils 57.3 % (42.0-75.0); Hemoglobin 9.1 g/dL (14.0-18.0); Mean Corpuscular HGB CONC 32.3 g/dL (32.0-36.0); Mean Corpuscular Hemoglobin 28.1 pg (27.0-31.0); Mean Platelet Volume 8.7 fL (7.4-10.4); Platelet Count 372 thou/uL (130-400); RBC Distribution Width 13.5 % (11.5-14.5); Red Blood Cell (RBC) Count 3.25 mill/uL (4.70-6.10); White Blood Cell (WBC) Count 11.3 thou/uL (4.8-10.8)
[2020-07-12 08:30] LABS: Anion Gap 13 mmol/L (10-20); BUN (Urea Nitrogen) 9 mg/dL (8.9-20.6); Calc. Creatinine Clearance 289 mL/min (70-130); Calcium 7.5 mg/dL (7.8-10.44); Carbon Dioxide 26 mmol/L (22-29); Chloride 105 mmol/L (98-107); Glucose 98 mg/dL (70-105); Phosphorus 3.8 mg/dL (2.3-4.7); Potassium 3.5 mmol/L (3.5-5.1); Sodium 140 mmol/L (136-145)
[2020-07-12] MEDS: HYDROmorphone 10 mg/100 ml CADD IVPB PRN (08:55)
[2020-07-12] MEDS: Pantoprazole 40 MG VIAL IVP SCH (08:55)
[2020-07-12] MEDS: Multivitamins, Adult 10 ML, TRACE ELEMENT CONCENTRATE 1 ML in D15W-AA 5% with Lytes 2,0... IV SCH (15:42)
[2020-07-12] MEDS: Fat Emulsion 250 ML IVPB SCH (15:42)
[2020-07-12] MEDS: Ondansetron PF 4 MG/2 ML Vial IVP PRN (17:29)
[2020-07-12] MEDS: Micafungin 100 MG in Sodium Chloride 0.9% 100 ML IVPB SCH (21:43)
[2020-07-12] MEDS: Enoxaparin Sodium 40 MG/0.4 ML SYRINGE SC SCH (22:25)
[2020-07-13] MEDS: HYDROmorphone 10 mg/100 ml CADD IVPB PRN (02:11)
[2020-07-13] MEDS: MEROPENEM 1 GM/50 ML 1 GM in Premix Bag 1 BAG IVPB SCH ×2 (06:02→14:40)
[2020-07-13] MEDS: Pantoprazole 40 MG VIAL IVP SCH (08:06)
[2020-07-13] MEDS: Fat Emulsion 250 ML IVPB SCH (14:39)
[2020-07-13] MEDS: Multivitamins, Adult 10 ML, TRACE ELEMENT CONCENTRATE 1 ML in D15W-AA 5% with Lytes 2,0... IV SCH (14:40)
[2020-07-13] MEDS ORDERED: Morphine 4 MG/ML VIAL SLOW IVP SCH (18:00)
[2020-07-13 20:08] VITALS: BP 131/86; TEMP 98.7
[2020-07-13] MEDS: Ondansetron PF 4 MG/2 ML Vial IVP PRN (20:26)
[2020-07-13] MEDS: Enoxaparin Sodium 40 MG/0.4 ML SYRINGE SC SCH (20:26)
== END 2020-07-13 20:30 | disposition short-term general hospital (02) | DRG 326 ==
LOC: ERS 09:01 → SDC 14:08 → SURG A 19:51
PROVIDERS: ADMIT Surgery; ATTEND Surgery
PROC: 0DQ60ZZ Repair Stomach, Open Approach (ICD-10-PCS; principal; 2020-07-07)
PROC: 0DJW4ZZ Inspection of Peritoneum, Percutaneous Endoscopic Approach (ICD-10-PCS; 2020-07-07)
DX: K95.89 Other complications of other bariatric procedure (principal); K65.1 Peritoneal abscess; K65.9 Peritonitis, unspecified; K95.81 Infection due to other bariatric procedure; Y83.8 Other surgical procedures as the cause of abnormal reaction of the patient, or of later complication, without mention of misadventure at the time of the procedure; Z20.822 Contact with and (suspected) exposure to COVID-19
CPT/HCPCS: 0240U; 36415; 36416; 74150; 74177; 74240; 80048; 80053; 83605; 83735; 84100; 85025; 85610; 85730; 87040; 93005; 93010; 94760; 96365; 96375; 96376; C9113; J1100; J1170; J1650; J1815; J1885; J2185; J2248; J2250; J2270; J2405; J2543; J2550; J2704; J3010; J3411; J3480; J3490; Q9967; S0020

== ENCOUNTER 2020-07-19 17:03 | Inpatient (IN) | payer BC ==
[2020-07-19] MEDS ORDERED: Fentanyl 100 MCG/2 ML VIAL SLOW IVP PRN (23:41)
[2020-07-20] MEDS: Ondansetron PF 4 MG/2 ML Vial IVP PRN ×2 (00:13→10:12)
[2020-07-20] MEDS: D5 1/2 NS w/20 mEq KCL 1,000 ML IV SCH ×4 (00:13→20:32)
[2020-07-20] MEDS: Fentanyl 100 MCG/2 ML VIAL SLOW IVP PRN ×4 (00:14→17:45)
[2020-07-20 04:50] LABS: #Basophils 0.1 thou/uL (0.0-0.2); #Eosinphils 0.4 thou/uL (0.0-0.7); #Neutrophils 6.6 thou/uL (1.40-6.50); %Basophils 1.1 % (0.0-1.0); %Eosinophils 3.4 % (0.0-10.0); %Lymphocytes 27.1 % (21.0-51.0); %Monocytes 8.6 % (0.0-10.0); %Neutrophils 59.8 % (42.0-75.0); Hemoglobin 10.4 g/dL (14.0-18.0); Mean Corpuscular HGB CONC 31.8 g/dL (32.0-36.0); Mean Corpuscular Hemoglobin 27.6 pg (27.0-31.0); Platelet Count 537 thou/uL (130-400); RBC Distribution Width 15.7 % (11.5-14.5); Red Blood Cell (RBC) Count 3.77 mill/uL (4.70-6.10); White Blood Cell (WBC) Count 11.1 thou/uL (4.8-10.8)
[2020-07-20 05:17] LABS: Anion Gap 12 mmol/L (10-20); BUN (Urea Nitrogen) 13 mg/dL (8.9-20.6); Calc. Creatinine Clearance 175 mL/min (70-130); Calcium 8.9 mg/dL (7.8-10.44); Carbon Dioxide 26 mmol/L (22-29); Chloride 104 mmol/L (98-107); Glucose 85 mg/dL (70-105); Potassium 3.9 mmol/L (3.5-5.1); Sodium 138 mmol/L (136-145)
[2020-07-20] MEDS: Pantoprazole 40 MG VIAL IVP SCH (08:09)
[2020-07-20] MEDS ORDERED: HYDROcodone/Acetaminophen 7.5/325 mg Tablet PO PRN (09:23)
[2020-07-20 13:45] VITALS: BMI 33.1
[2020-07-20] MEDS: MEROPENEM 1 GM/50 ML 1 GM in Premix Bag 1 BAG IVPB SCH ×2 (15:43→23:48)
[2020-07-20] MEDS: Micafungin 100 MG in Sodium Chloride 0.9% 100 ML IVPB SCH (15:45)
[2020-07-20] MEDS ORDERED: Scopolamine 1.5 mg/72 hour Patch TOP SCH (16:00)
[2020-07-20] MEDS ORDERED: Fat Emulsion 250 ML IVPB SCH (22:00)
[2020-07-20] MEDS ORDERED: TRACE ELEMENT CONCENTRATE 1 ML, Multivitamins, Adult 10 ML in D15W-AA 5% with Lytes 2,0... IV SCH (22:00)
[2020-07-20] MEDS: HYDROcodone/Acetaminophen 7.5/325 mg Tablet PO PRN (22:40)
[2020-07-21] MEDS: MEROPENEM 1 GM/50 ML 1 GM in Premix Bag 1 BAG IVPB SCH ×2 (08:39→15:04)
[2020-07-21] MEDS: Pantoprazole 40 MG VIAL IVP SCH (08:39)
[2020-07-21] MEDS: HYDROcodone/Acetaminophen 7.5/325 mg Tablet PO PRN (08:40)
[2020-07-21] MEDS: D5 1/2 NS w/20 mEq KCL 1,000 ML IV SCH ×2 (10:00→17:06)
[2020-07-21 15:53] VITALS: BP 112/73; TEMP 97.9
[2020-07-21] MEDS: Micafungin 100 MG in Sodium Chloride 0.9% 100 ML IVPB SCH (17:02)
== END 2020-07-21 16:50 | disposition home or self-care (01) | DRG 950 ==
LOC: SURG B 22:46
PROVIDERS: ADMIT Surgery; ATTEND Surgery
DX: Z48.815 Encounter for surgical aftercare following surgery on the digestive system (principal); Z20.822 Contact with and (suspected) exposure to COVID-19; Z79.899 Other long term (current) drug therapy
CPT/HCPCS: 36416; 80048; 85025; C9113; J2185; J2248; J2405; J3010; J3480; J3490

== ENCOUNTER 2020-07-24 10:13 | Day surgery (SDC) | payer BC ==
[2020-07-24] MEDS ORDERED: Ondansetron PF 4 MG/2 ML Vial IVP PRN (10:20)
[2020-07-24 10:30] VITALS: BP 119/76; TEMP 97.8
[2020-07-24] MEDS ORDERED: Multivitamins, Adult 10 ML in Sodium Chloride 0.9% 1,000 ML IV SCH (10:30)
[2020-07-24] MEDS ORDERED: Thiamine HCl 200 MG/2 ML VIAL SLOW IVP SCH (10:30)
[2020-07-24] MEDS ORDERED: Sodium Chloride 0.9% 1,000 ML IV SCH (10:30)
[2020-07-24] MEDS ORDERED: Sodium Chloride 0.9% 20 ML ONE (12:15)
== END 2020-07-24 13:04 | disposition home or self-care (01) ==
LOC: ONC/OP 10:13
PROVIDERS: ATTEND Surgery
DX: E86.0 Dehydration (principal)
CPT/HCPCS: 96361; 96365; 96366; J1642; J3411; J7050

== ENCOUNTER 2020-08-03 11:04 | Outpatient (CLI) | payer BC | END 2020-08-03 11:05 | disposition home or self-care (01) | LOC: BICCT 11:04 | PROVIDERS: ATTEND Surgery | DX: K65.1 Peritoneal abscess (principal) | CPT/HCPCS: 74177 ==

== ENCOUNTER 2020-08-04 12:15 | Day surgery (SDC) | payer BC ==
[~2020-08-04 12:15] MED LIST changes: -Iopamidol-370 76% 500 ML 1 ML ONE; +Multivitamins, Adult 10 ML, Thiamine HCl 100 MG in Sodium Chloride 0.9% 1,000 ML IV SCH; +Ondansetron PF 4 MG/2 ML Vial IVP PRN; +Sodium Chloride 0.9% 1,000 ML IV SCH
[2020-08-04] MEDS ORDERED: Sodium Chloride 0.9% 20 ML ONE (12:24)
[2020-08-04 13:05] VITALS: BP 125/85; TEMP 98.1
== END 2020-08-04 14:45 | disposition home or self-care (01) ==
LOC: ONC/OP 12:15
PROVIDERS: ATTEND Surgery
DX: E86.0 Dehydration (principal)
CPT/HCPCS: 96361; 96365; 96366; J1642; J3411; J7050

== ENCOUNTER 2024-11-17 09:38 | Outpatient (CLI) | payer OTHER | END 2024-11-17 09:39 | disposition home or self-care (01) | LOC: BICRAD 09:38 | PROVIDERS: ATTEND Nurse Practitioner Family | DX: M77.11 Lateral epicondylitis, right elbow (principal); M47.26 Other spondylosis with radiculopathy, lumbar region; M47.814 Spondylosis without myelopathy or radiculopathy, thoracic region | CPT/HCPCS: 36415; 72072; 72110; 80053; 80061; 81001; 82306; 82746; 83036; 84270; 84403; 84425; 84443; 85025 ==